=== PATIENT | female | born 1925 | race Caucasian/White ===

== ENCOUNTER 2017-03-29 16:37 | Inpatient (IN) ==
[2017-03-29] MEDS ORDERED: Naloxone 0.4 MG/ML INJ IVP PRN (21:13)
[2017-03-29] MEDS ORDERED: *HR* Dextrose 50 % in Water (Syg) 50 ML SYRINGE IVP PRN (21:16)
[2017-03-29] MEDS ORDERED: D5% in Water 1,000 ML IVC PRN (21:16)
[2017-03-29] MEDS ORDERED: Dextrose Gel 15 GM/37.5 ML TUBE PO PRN ×2 (21:16)
--- NOTE | 2017-03-29 21:20 | Internal Med History&Physical ---
Date of Encounter: 03/29/17 Time of Encounter: 20:45 Assessment and Plan (1) Atypical chest pain Current visit: No Status: Acute No prior history of CAD however given risk factors, will work up to rule out ACS mild TNI elevation can be secondary to demand ischemia given underlying respiratory distress and URI trend serial TNI obtain 2D echo tele monitoring serial EKG consider cardio evaluation if the above tests are abnormal pt currently chest pain free at this time (2) Upper respiratory infection Current visit: No Status: Acute will obtain respiratory viral panel CXR negative for PNA however given acute respiratory distress x 3 days, will treat with empiric abx continue Azithromycin and Ceftriaxone O2 supplementation Bronchodilator support as needed will obtain CTA chest to rule out PE or any acute cardiopulmonary etiology contributing to her symptoms will closely monitor respiratory status Qualifiers: URI type: unspecified URI Qualified Code(s): J06.9 - Acute upper respiratory infection, unspecified (3) Lactic acidosis Current visit: Yes Status: Acute likely secondary to hypoxia will repeat Lactate pt reports of improvement in her symptoms since hospitalization (4) Hypertension Current visit: Yes Status: Chronic BP within acceptable range please restart home medications after verification Qualifiers: Hypertension type: essential hypertension Qualified Code(s): I10 - Essential (primary) hypertension (5) Diabetes mellitus Current visit: Yes Status: Chronic hold oral antihyperglycemic agents sliding scale insulin algorithm monitor FS and BG ADA diet Qualifiers: Diabetes mellitus type: type 2 Diabetes mellitus complication status: with unspecified complications Diabetes mellitus terminal makeup operator insulin use: without terminal makeup operator use Qualified Code(s): E11.8 - Type 2 diabetes mellitus with unspecified complications (6) DVT prophylaxis Current visit: Yes Status: Acute Heparin SQ Internal Medicine - H&P: HPI Chief complaint: transfer from [facility] [place] for chest pain/URI Admitted From: Intrahospital Transfer Plans for Post Hospital Care: Home History of present illness: Ms. Ayala is a 89 year old female with PMH of HTN, DM, breast ca s/p mastectomy in 1982 who was transferred from [facility] for further evaluation of chest pain and URI. Pt reports of having worsening shortness of breath with nausea and vomiting for the last two days. She states she has been feeling weak for the last few days and has had chest pain intermittently for the last two weeks. Describes the chest pain as localized sharp substernal pain with no radiation. Denies any exacerbating or alleviating factors. She states she had a similar episode last summer when she was doing yard work. Reported of severe respiratory distress which is what prompted her visit to the ER. The EKG reported sinus rhythm with some Q waves in anterior leads V2 and V3. Some upsloping ST elevation in leads V2 and V3. ST depression in leads 1 and aVL. This was compared to an EKG from 05/24/2016 the patient has moderate artifact primarily in the inferior leads and only slight ST elevation in V2 and V3. Mild TNI elevation Denies any chest pain at this time. Wishes to be DNR/DNI and reports of having a living will. Past Med Surg Social Fam HX - Past Medical History Medical history: cancer, diabetes Psychiatric history: no psych history - Past Surgical History Surgical History: breast surgery, cancer surgery - Social History Smoking Status: Never smoker Smokeless Tobacco Status: No Alcohol use: none Drug use: none Internal Medicine - H&P: Meds Amlodipine Besylate 10 mg PO DAILY 07/30/16 [History] Ascorbate Calcium [Vitamin C] 500 mg PO DAILY 07/30/16 [History] Aspirin [Ecotrin] 325 mg PO DAILY 07/30/16 [History] Calcium Carbonate [Calcium] 500 mg PO DAILY 07/30/16 [History] Famotidine [Pepcid] 40 mg PO DAILY 07/30/16 [History] Garlic 500 mg PO DAILY 07/30/16 [History] Magnesium Oxide [Magnesium] 250 mg PO DAILY 07/30/16 [History] Metoprolol XL (24 HR) Succ [Toprol XL] 100 mg PO DAILY 07/30/16 [History] Multivits Min/Iron/FA/Herb#186 [Hair, Skin & Nails Caplet] 1 tab PO DAILY [History] [place]-3/Dha/Epa/Fish Oil [Fish Oil 500 mg Softgel] 500 mg PO DAILY 07/30/16 [ History] Triamterene/HCTZ 37.5/25mg [Dyazide] 1 each PO DAILY 07/30/16 [History] Zinc Acetate [Galzin] 50 mg PO DAILY 07/30/16 [History] metFORMIN [Glucophage] 500 mg PO BIDWM 07/30/16 [History] 3 Allergy/AdvReac Type Severity Reaction Status Date / Time doxazosin [From Cardura] Allergy Swelling Verified 07/30/16 09:58 of Lip/Tongue/Throat lisinopril Allergy Swelling Verified 07/30/16 09:58 of Lip/Tongue/Throat simvastatin [From Zocor] Allergy Swelling Verified 07/30/16 09:58 of Lip/Tongue/Throat All Systems PM: A 10-system review of systems was performed and is negative for pertinent findings except as documented above in the HPI. - EENT Eyes: as per HPI - Constitutional Vitals: Temp Pulse Resp BP Pulse Ox 98 F 82 22 150/68 100 03/29/17 19:41 03/29/17 19:41 03/29/17 19:41 03/29/17 19:41 03/29/17 19:41 General appearance: Present: cooperative, A&O X 3 (hard of hearing), pleasant, no acute distress, answers questions appropriately - Head Head exam: Present: atraumatic, normocephalic - Eye Eye exam: Present: conjuntiva pink, sclera anicteric - Respiratory Respiratory exam: Present: decreased breath sounds. Absent: respiratory distress, wheezes - Cardiovascular Cardiovascular exam: Present: RRR, +S1, +S2. Absent: diastolic murmur, gallop, rubs, systolic murmur - GI/Abdominal GI/Abdominal exam: Present: normal bowel sounds, soft, no peritoneal signs. Absent: distended, tenderness - Extremities Exam Extremities exam: Present: warm, radial pulses palpable and symmetrical. Absent : calf tenderness, cyanotic, pedal edema - Neurological Exam Neurological exam: Present: alert, oriented X3
[2017-03-29] MEDS: Ipratropium/Albuterol Neb 3 ML IH SCH (22:20)
[2017-03-29] MEDS ORDERED: *HR* Heparin 5,000 UNIT/ML VIAL IVP PRN ×2 (22:31)
[2017-03-29] MEDS ORDERED: *HR* Heparin 5,000 UNIT/ML VIAL IVP ONE (22:31)
[2017-03-29] MEDS: Insulin LISPRO 300 UNITS/3 ML VIAL SQ SCH (23:03)
[2017-03-29] MEDS: Heparin 25,000 UNIT/500 ML D5W 25,000 UNIT/500 ML BAG IVC SCH (23:12)
[2017-03-30] MEDS ORDERED: *HR* Morphine 2 MG/ML SYRINGE ONE (00:28)
[2017-03-30 00:29] LABS: Adenovirus Not Detected (Not Detect); Bordetella Pertussis Not Detected (Not Detect); Chlamydophila pneumoniae Not Detected (Not Detect); Coronavirus 229E Not Detected (Not Detect); Coronavirus HKU1 Not Detected (Not Detect); Coronavirus NL63 Not Detected (Not Detect); Coronavirus OC43 Not Detected (Not Detect); Human Metapneumovirus Not Detected (Not Detect); Human Rhinovirus/Enterovirus Not Detected (Not Detect); Influenza A Subtype 2009 H1 Not Detected (Not Detect); Influenza A Untypeable Not Detected (Not Detect); Influenza B Not Detected (Not Detect); Mycoplasma pneumoniae Not Detected (Not Detect); Parainfluenza Virus 1 Not Detected (Not Detect); Parainfluenza Virus 2 Not Detected (Not Detect); Parainfluenza Virus 3 Not Detected (Not Detect); Parainfluenza Virus 4 Not Detected (Not Detect); Respiratory Syncytial Virus Not Detected (Not Detect)
[2017-03-30] MEDS ORDERED: Nitroglycerin 0.4 MG TAB.SUBL SL ONE (00:29)
[2017-03-30] MEDS ORDERED: Nitroglycerin 0.4 MG TAB.SUBL SL PRN (00:30)
[2017-03-30] MEDS ORDERED: *HR* Morphine 2 MG/ML SYRINGE IVP ONE (00:31)
[2017-03-30] MEDS: Ipratropium/Albuterol Neb 3 ML IH SCH ×4 (04:35→23:07)
[2017-03-30] MEDS ORDERED: 0.9 % Sodium Chloride 500 ML ONE (05:00)
[2017-03-30] MEDS ORDERED: 0.9 % Sodium Chloride 500 ML IVC ONE (05:02)
[2017-03-30 05:33] LABS: Basophils % 0.2 %; Eosinophils % 0.3 %; Hematocrit 32.9 % (35.3-44.9); Hemoglobin 10.8 g/dL (11.5-15.4); Immature Granulocytes % 0.4 % (0-4); Lymphocytes # 2.5 K/mcL (0.6-4.6); Lymphocytes % 22.9 %; Mean Corpuscular HGB Conc 32.8 g/dL (31.6-35.5); Mean Corpuscular Hemoglobin 31.3 pg (28.0-33.3); Mean Corpuscular Volume 95.4 fL (83.0-100.0); Mean Platelet Volume 12.8 fL (9.4-12.4); Monocytes # 0.9 K/mcL (0.0-1.3); Monocytes % 7.8 %; Neutrophils # 7.6 K/mcL (1.6-8.9); Platelet Count 158 K/mcL (140-400); Red Blood Count 3.45 M/mcL (3.82-4.97); Red Cell Distribution Width 12.5 % (11.5-14.5); Segmented Neutrophils % 68.4 %
[2017-03-30] MEDS ORDERED: *HR* Heparin 5,000 UNIT/ML VIAL SQ SCH (06:00)
[2017-03-30 06:05] LABS: BUN/Creatinine Ratio 25 (6-26); Blood Urea Nitrogen 17 mg/dL (8-23); Calcium 8.7 mg/dL (8.6-10.3); Carbon Dioxide 22 mEq/L (23-29); Chloride 103 mEq/L (98-107); Chol/HDL Ratio 4.3 (0-4.9); Cholesterol 152 mg/dL (< 200); Glucose 204 mg/dL (70-105); HDL Cholesterol 35 mg/dL (40-59); LDL Cholesterol,Calculated 67 mg/dL (0-99); Magnesium 1.9 mg/dL (1.6-2.6); Osmolality,Calculated 289 (280-300); Phosphorous 2.6 mg/dL (2.7-4.5); Potassium 3.1 mEq/L (3.5-5.1); Sodium 136 mEq/L (136-145); Triglycerides 249 mg/dL (< 150); eGFR For African Americans > 60 (> 60); eGFR For Non-African Americans > 60 (> 60)
[2017-03-30] MEDS ORDERED: Ascorbic Acid 500 MG TABLET PO SCH (09:00)
[2017-03-30] MEDS ORDERED: amLODIPine 5 MG TABLET PO SCH (09:00)
[2017-03-30] MEDS ORDERED: Famotidine 20 MG TABLET PO SCH (09:00)
[2017-03-30] MEDS: Insulin LISPRO 300 UNITS/3 ML VIAL SQ SCH ×4 (09:43→22:34)
[2017-03-30] MEDS: Aspirin Enteric Coated 325 MG Tablet PO SCH (09:45)
[2017-03-30] MEDS: Magnesium Oxide 400 MG TABLET PO SCH (09:45)
[2017-03-30] MEDS: Multivit/Ca/Min/Fe/FA 1 TAB TABLET PO SCH (09:46)
[2017-03-30] MEDS: cefTRIAXone 1,000 MG in Water for inj. (sterile) 20 ML 10 ML IVP SCH (09:51)
[2017-03-30] MEDS: Metoprolol XL (24 HR) Succ 50 MG TAB.ER.24H PO SCH ×2 (10:04→12:07)
--- NOTE | 2017-03-30 10:06 | Cardiology Consult Note ---
Date of Encounter: 03/30/17 Time of Encounter: 10:02 Assessment and Plan (1) Elevated troponin Current Visit: Yes Status: Acute Troponin 0.06, 0.11, 0.06, in setting of lactic acidosis, URI, now A-Fib RVR. Suspect demand ischemia, nondiagnostic for ACS. On heparin gtt for A-Fib RVR. Does admit to intermittent chest pain over the past two weeks. No exacerbating factors. Reports "getting air" improves the pain. EKG A-Fib RVR, prior anteroseptal RI. Pt denies prior cardiac hx. Murmur noted on exam 2/6, loudest at RSB. Echo to evaluate structure and function. Further recommendations pending echo results. Pt is DNR-CCA-DNI. If echo is abnormal, will need to discuss goals and how aggressive she wants to be. (2) Atrial fibrillation with RVR Current Visit: Yes Status: Acute New diagnosis, in setting of URI. HR 100s-130s at bedside. On cardizem gtt at 5mg/hr. Uptitrate as BP/HR tolerate. K 3.1--replace, Mag 1.9. Check TSH. On Toprol XL 100mg daily. Will stop Norvasc and Dyazide to allow BP room for AV leesa nataly increase in attempt to achieve HR control. [id number] (Age, HTN, Female, DM). Currently on heparin gtt. Pt denies falls. Given murmur on exam, await echo results to determine if Coumadin or NOAC is the best option. High CVA risk, so will likely recommend [facility]. (3) Cardiac murmur Current Visit: Yes Status: Acute 2/6 ROZINA, loudest at RSB. Echo to further evaluate. Discussion w patient/family: The assessment and plan as outlined above was discussed with the patient and/or family members who expressed understanding and agreement. All questions were answered. Thank you for involving us in the care of your patient. Please call with any questions. I will discuss all the above with Dr. Oliva and make changes as necessary. History of Present Illness Consult date: 03/30/17 Requesting physician: Melanie Lozano Consult reason: Elevated troponin, chest pain, A-Fib RVR Chief complaint: Chest pain, dyspnea History of present illness: Ms. Ayala is a 89 year old female with PMH of HTN, DM, breast ca s/p mastectomy in 1982 who was transferred from [facility] for further evaluation of chest pain and URI. Pt reports of having worsening shortness of breath with nausea and vomiting for the last two days. She states she has been feeling weak for the last few days and has had chest pain intermittently for the last two weeks. Describes the chest pain as localized sharp substernal pain with no radiation. Reports "getting air" improves the pain. Overnight pt went into A-Fib RVR, currently RVR at bedside with HR low 100s-130s on telemetry. Troponin 0.06, 0.11, 0.06. BNP 404. CXR without acute findings. Past Med Surg Social Fam HX - Past Medical History Medical history: cancer, diabetes, GERD, hypertension Psychiatric history: no psych history - Past Surgical History Surgical History: breast surgery, cancer surgery - Social History Smoking Status: Never smoker Smokeless Tobacco Status: No Alcohol use: none Drug use: none Medications and Allergies Amlodipine Besylate 10 mg PO DAILY 07/30/16 [History] Ascorbate Calcium [Vitamin C] 500 mg PO DAILY 07/30/16 [History] Aspirin [Ecotrin] 325 mg PO DAILY 07/30/16 [History] Calcium Carbonate [Calcium] 500 mg PO DAILY 07/30/16 [History] Famotidine [Pepcid] 40 mg PO DAILY 07/30/16 [History] Garlic 500 mg PO DAILY 07/30/16 [History] Magnesium Oxide [Magnesium] 250 mg PO DAILY 07/30/16 [History] Metoprolol XL (24 HR) Succ [Toprol XL] 100 mg PO DAILY 07/30/16 [History] Multivits Min/Iron/FA/Herb#186 [Hair, Skin & Nails Caplet] 1 tab PO DAILY [History] [place]-3/Dha/Epa/Fish Oil [Fish Oil 500 mg Softgel] 500 mg PO DAILY 07/30/16 [ History] Triamterene/HCTZ 37.5/25mg [Dyazide] 1 each PO DAILY 07/30/16 [History] Zinc Acetate [Galzin] 50 mg PO DAILY 07/30/16 [History] metFORMIN [Glucophage] 500 mg PO BIDWM 07/30/16 [History] Potassium Gluconate [Potassium] 500 mg PO HS 03/29/17 [History] 3 Allergy/AdvReac Type Severity Reaction Status Date / Time doxazosin [From Cardura] Allergy Swelling Verified 07/30/16 09:58 of Lip/Tongue/Throat lisinopril Allergy Swelling Verified 07/30/16 09:58 of Lip/Tongue/Throat simvastatin [From Zocor] Allergy Swelling Verified 07/30/16 09:58 of Lip/Tongue/Throat All Systems Review: A 10-system review of systems was performed and is negative for pertinent findings except as documented above in the HPI. - Constitutional Constitutional: weakness - Cardiovascular Cardiovascular: as per HPI, chest pain at rest, chest pain with exertion, dyspnea at rest, dyspnea on exertion - Respiratory Respiratory: cough, dyspnea - Gastrointestinal Gastrointestinal: nausea Physical Examination Vital Signs, Last 4 Hours Temp Pulse Resp BP Pulse Ox 03/30/17 09:00 126 142/92 03/30/17 07:15 122 18 113/55 95 03/30/17 06:57 97.8 F 114 18 120/66 98 03/30/17 06:49 123 18 108/64 96 03/30/17 06:20 118 130/89 95 Vital Signs Temp Pulse Resp BP Pulse Ox 03/30/17 09:00 126 142/92 03/30/17 07:15 122 18 113/55 95 03/30/17 06:57 97.8 F 114 18 120/66 98 03/30/17 06:49 123 18 108/64 96 03/30/17 06:20 118 130/89 95 03/30/17 05:39 120 102/84 96 03/30/17 05:32 123 20 114/89 94 03/30/17 05:05 118 20 96/58 93 03/30/17 04:58 113 96/58 03/30/17 04:56 102 20 89/59 03/30/17 04:55 113 18 70/50 93 03/30/17 04:37 16 96 03/30/17 04:25 98 18 105/69 94 03/30/17 04:00 98 F 123 20 112/84 93 03/30/17 03:35 98 F 123 20 112/84 93 03/30/17 03:00 118 18 112/84 94 03/30/17 02:33 118 117/89 03/30/17 02:06 126 18 126/86 94 03/30/17 00:55 105 18 120/54 94 03/30/17 00:45 110 18 105/60 94 03/30/17 00:38 122 18 105/71 94 03/30/17 00:32 120 20 117/66 94 03/30/17 00:29 22 148/87 92 03/30/17 00:00 97.7 F 83 20 126/83 95 03/29/17 22:24 18 97 03/29/17 20:00 94 03/29/17 19:41 98 F 82 22 150/68 100 Intake and Output 03/29/17 03/30/17 03/30/17 23:59 07:59 15:59 Intake Total 0 / 0 535 / 535 32 / 32 Output Total 500 / 500 Balance 0 / 0 35 / 35 32 / 32 Intake: IV Fluids 535 / 535 32 / 32 0.9 % Sodium Chloride 500 ML @ 500 / 500 1875 mls/hr IVC .Q16M ONE Rx#: [id number] Cardizem 125 MG In 0.9 % Sodium 35 / 35 32 / 32 Chloride 100 ML @ 5 MG/HR 5 mls/hr IVC .Q24H [facility] Rx#: [id number] Heparin 25,000 UNIT/500 ML D5W 0 / 0 25,000 unit In 500 ml @ 12 UNIT /KG/HR 15.888 mls/hr IVC .Q24H [facility] Rx#:[id number] Oral 0 / 0 0 / 0 Output: Urine 500 / 500 Other: # Voids 1 1 Weight 66.2 kg 66.2 kg Blood Glucose* 213 201 Patient Weight 03/30/17 23:59 Weight 66.2 kg General: Conversant, No Apparent Distress HEENT: Atraumatic, Normocephaly, Mucus Membranes Moist Neck: No JVD, Normal carotid pulses Cardiac: Other (irregularly irregular, 2/6 ROZINA) Lungs: Other (diminished) Neuro: Alert and responsive, No focal deficits noted Abdomen: Soft, Non-Tender Skin: No rashes noted on visualized skin Musculoskeletal: No Chest Wall Tenderness Extremities: No Clubbing, No Cyanosis, No Edema, Normal Pulses Results 03/30/17 05:19 03/30/17 05:19 Lab Results 03/29/17 03/30/17 03/30/17 21:54 05:19 05:19 WBC 11.1 Hgb 10.8 L D Hct 32.9 L Plt Count 158 APTT Sodium 136 Potassium 3.1 L Chloride 103 Carbon Dioxide 22 L BUN 17 Creatinine 0.68 Glucose 204 H Calcium 8.7 Magnesium 1.9 Troponin I 0.11 H* 03/30/17 03/30/17 05:19 05:19 WBC Hgb Hct Plt Count APTT 36.9 H Sodium Potassium Chloride Carbon Dioxide BUN Creatinine Glucose Calcium Magnesium Troponin I 0.06 H* Short CBC 03/30/17 Range/Units 05:19 WBC 11.1 (4.3-11.1) K/mcL Hgb 10.8 L D (11.5-15.4) g/dL Hct 32.9 L (35.3-44.9) % Plt Count 158 (140-400) K/mcL Neutrophils # 7.6 (1.6-8.9) K/mcL BMP 03/30/17 Range/Units 05:19 Sodium 136 (136-145) mEq/L Potassium 3.1 L (3.5-5.1) mEq/L Chloride 103 (98-107) mEq/L Carbon Dioxide 22 L (23-29) mEq/L BUN 17 (8-23) mg/dL Creatinine 0.68 (0.60-1.20) mg/dL Glucose 204 H (70-105) mg/dL Calcium 8.7 (8.6-10.3) mg/dL Cardiac Enzymes 03/30/17 03/29/17 Range/Units 05:19 21:54 Troponin I 0.06 H* 0.11 H* (< 0.04) ng/mL Active Medications Hydrocodone Bitart/Acetaminophen ([place] 5-325 Mg) 1 tab PO Q4HR PRN PRN Reason: Moderate Pain (4-6) Stop: 09/28/17 21:14 Albuterol/Ipratropium (Duoneb) 3 ml IH [id number] PRN PRN Reason: Shortness Of Breath/Wheezing Stop: 09/28/17 21:32 Albuterol/Ipratropium (Duoneb) 3 ml IH [id number] [facility] Stop: 09/28/17 22:01 Last Admin: 03/30/17 04:35 Dose: 3 ml Amlodipine Besylate (Norvasc) 10 mg PO DAILY [facility] Stop: 09/29/17 09:01 Last Admin: 03/30/17 08:59 Dose: Not Given Ascorbic Acid (Vitamin C) 1 mg PO DAILY [facility] Stop: 09/29/17 09:01 Aspirin (Aspirin Ec) 325 mg PO DAILY [facility] Stop: 09/29/17 09:01 Last Admin: 03/30/17 09:45 Dose: 325 mg Calcium Carbonate (Tums) 500 mg PO DAILY [facility] Stop: 09/29/17 09:01 Last Admin: 03/30/17 09:48 Dose: 500 mg Dextrose/Water (Dextrose 50% (Syg)) 25 ml IVP AD PRN PRN Reason: Hypoglycemia Stop: 09/28/17 21:17 Famotidine (Pepcid) 40 mg PO DAILY [facility] Stop: 09/29/17 09:01 Last Admin: 03/30/17 09:46 Dose: 40 mg Glucagon (Glucagen) 1 mg IM ONCE PRN PRN Reason: Hypoglycemia Stop: 09/28/17 21:17 Glucose (Gluctose) 15 gm PO ONCE PRN PRN Reason: Hypoglycemia Stop: 09/28/17 21:17 Glucose (Gluctose) 30 gm PO ONCE PRN PRN Reason: Hypoglycemia Stop: 09/28/17 21:17 Heparin Sodium (Porcine) (Heparin) 4,000 unit 60 unit/kg (4000 unit) IVP Q6HR PRN PRN Reason: SEE COMMENTS Stop: 09/28/17 22:32 Last Admin: 03/30/17 06:54 Dose: 4,000 unit Heparin Sodium (Porcine) (Heparin) 2,000 unit 30 unit/kg (2000 unit) IVP Q6H PRN PRN Reason: SEE COMMENTS Stop: 09/28/17 22:32 Dextrose (Dextrose 5%) 1,000 mls @ 100 mls/hr IVC .Q10H PRN PRN Reason: HYPOGLYCEMIA Stop: 09/28/17 21:17 Azithromycin 500 mg/ Dextrose 250 mls @ 252 mls/hr IVPB Q24H [facility] Stop: 09/29/17 17:01 Ceftriaxone Sodium 1,000 mg/ (Sterile Water) 10 mls @ 300 mls/hr IVP DAILY [facility] Stop: 09/29/17 09:01 Last Admin: 03/30/17 09:51 Dose: 300 mls/hr Heparin Sodium/Dextrose (Heparin 25,000 Unit/500 Ml D5w) 25,000 unit in 500 mls @ 15.888 mls/hr IVC .Q24H [facility]; 12 UNIT/KG/HR PRN Reason: Protocol Stop: 09/28/17 22:46 Last Titration: 03/30/17 06:55 Dose: 16 unit/kg/hr, 21.184 mls/hr Diltiazem HCl 125 mg/ Sodium (Chloride) 125 mls @ 5 mls/hr IVC .Q24H [facility]; 5 MG/ HR PRN Reason: Protocol Stop: 09/29/17 01:16 Last Titration: 03/30/17 08:59 Dose: 7.5 mg/hr, 7.5 mls/hr Insulin Human Lispro (Humalog) 0 units SQ TIDAC [facility] PRN Reason: Protocol Stop: 09/29/17 07:31 Last Admin: 03/30/17 09:43 Dose: 6 units Insulin Human Lispro (Humalog) 0 units SQ HS [facility] PRN Reason: Protocol Stop: 09/28/17 21:34 Last Admin: 03/29/17 23:03 Dose: 3 units Magnesium Oxide (Mag-Ox) 200 mg PO DAILY [facility] Stop: 09/29/17 09:01 Last Admin: 03/30/17 09:45 Dose: 200 mg Metoprolol Succinate (Toprol Xl) 100 mg PO DAILY [facility] Stop: 09/29/17 09:01 Last Admin: 03/30/17 10:04 Dose: 50 mg Multivitamins/Calcium (Thera M Plus) 1 tab PO DAILY [facility] Stop: 09/29/17 09:01 Last Admin: 03/30/17 09:46 Dose: 1 tab Naloxone HCl (Narcan) 0.4 mg IVP Q2MIN PRN PRN Reason: Opioid Reversal Stop: 09/28/17 21:14 Nitroglycerin (Nitroglycerin) 0.4 mg SL Q5MIN PRN PRN Reason: Chest Pain Stop: 09/29/17 00:31 Last Admin: 03/30/17 00:29 Dose: 0.4 mg Ondansetron HCl (Zofran) 4 mg IVP Q6HR PRN PRN Reason: Nausea And Vomiting Stop: 09/28/17 21:14 Pharmacy Profile Note (Patient Taking Own Medication) 1 each PO DAILY [facility] Stop: 09/29/17 09:01 Last Admin: 03/30/17 08:59 Dose: Not Given Triamterene/HCTZ (Dyazide) 1 each PO DAILY [facility] Stop: 09/29/17 09:01 Last Admin: 03/30/17 08:58 Dose: Not Given - Imaging and Cardiology Echo: pending - EKG Interpretation EKG results cardiology: personally reviewed (A-Fib RVR, prior anteroseptal RI.) , other (12 hr tele AVG HR 114, A-Fib) Consult Discharge Plan - Plan Referrals: Manjula Yee, ADJUSTER ARBITRATOR [Primary Care Provider] -
--- NOTE | 2017-03-30 12:37 | Internal Med Progress Note ---
Date of Encounter: 03/30/17 Time of Encounter: 12:35 - Assessment and plan (1) Atrial fibrillation with RVR Current Visit: Yes Status: Acute Assessment and plan: No clear trigger Continue Cardizem, metoprolol Heparin drip CT angiography chest ordered, may discontinue Rocephin and azithromycin if no infection is found Cardiology recommendations appreciated Echocardiogram ordered (2) Diabetes mellitus Current Visit: Yes Status: Chronic Assessment and plan: Insulin sliding scale Qualifiers: Diabetes mellitus type: type 2 Diabetes mellitus complication status: with unspecified complications Diabetes mellitus manager terminal insulin use: without manager terminal use Qualified Code(s): E11.8 - Type 2 diabetes mellitus with unspecified complications (3) Elevated troponin Current Visit: Yes Status: Acute Assessment and plan: Likely secondary to demand ischemia (4) Cardiac murmur Current Visit: Yes Status: Acute Assessment and plan: Echocardiogram ordered (5) Hypertension Current Visit: Yes Status: Chronic Assessment and plan: Hold amlodipine, triamterene and hydrochlorothiazide as the patient will be on Cardizem for now, per cardiology recommendations Qualifiers: Hypertension type: essential hypertension Qualified Code(s): I10 - Essential (primary) hypertension - Subjective Interval history: Feeling very short of breath, denies any chest pain, no abdominal pain, no dysuria, no fevers, no weakness - Constitutional Vitals: Temp Pulse Resp BP Pulse Ox 97.8 F 102 16 128/96 94 03/30/17 11:34 03/30/17 11:34 03/30/17 11:34 03/30/17 11:34 03/30/17 11:34 General appearance: Present: cooperative, A&O X 3 (hard of hearing), pleasant, no acute distress, answers questions appropriately - Head Head exam: Present: atraumatic, normocephalic - Eye Eye exam: Present: PERRL, conjuntiva pink, sclera anicteric Pupils: Present: PERRL - Neck Neck exam general surgery: Present: supple, trachea midline. Absent: lymphadenopathy - Respiratory Respiratory exam: Present: decreased breath sounds, CTAB. Absent: accessory muscle use, rales, rhonchi, wheezes - Cardiovascular Cardiovascular exam: Present: RRR, +S1, +S2, systolic murmur (Systolic murmur radiated to the aortic area), tachycardia. Absent: diastolic murmur, gallop, rubs - GI/Abdominal GI/Abdominal exam: Present: normal bowel sounds, soft, no peritoneal signs. Absent: distended, tenderness - Extremities Exam Extremities exam: Present: warm, radial pulses palpable and symmetrical. Absent : calf tenderness, cyanotic, pedal edema - Neurological Exam Neurological exam: Present: CN II-XII intact, oriented X3, no focal deficits. Absent: pronater drift, facial droop, speech deficit - Skin Skin exam: Present: dry, intact Internal Medicine: Result - Labs CBC & Chem 7: 03/30/17 05:19 03/30/17 05:19 Labs: Short CBC 03/30/17 Range/Units 05:19 WBC 11.1 (4.3-11.1) K/mcL Hgb 10.8 L D (11.5-15.4) g/dL Hct 32.9 L (35.3-44.9) % Plt Count 158 (140-400) K/mcL Neutrophils # 7.6 (1.6-8.9) K/mcL BMP 03/30/17 05:19 Sodium 136 Potassium 3.1 L Chloride 103 Carbon Dioxide 22 L BUN 17 Creatinine 0.68 Glucose 204 H Calcium 8.7 Cardiac Enzymes 03/29/17 03/30/17 Range/Units 21:54 05:19 Troponin I 0.11 H* 0.06 H* (< 0.04) ng/mL Consult Discharge Plan - Plan Referrals: Manjula Yee CNP [Primary Care Provider] - 04/06/17 10:00 am
--- NOTE | 2017-03-30 13:42 | Electrocardiograph Report ---
[address] [id number] Test Date: 2017-03-30 Pat Name: Jeannette Ayala Department: 111 Room: 2NE31 Gender: F Concrete Pourer: : 1925 Requested By: Miguel Greenberg Order Number: [id number] Reading MD: Jody Haley Measurements Intervals [place] Rate: 127 P: NV: 0 QRS: -21 QRSD: 125 T: 142 QT: 312 QTc: 387 Interpretive Statements ATRIAL FIBRILLATION WITH RAPID VENTRICULAR RESPONSE IVCD ST ABNORMALITIES IN ANTERIOR LEADS - CONSIDER ISCHEMIA Electronically Signed On 03-30-2017 13:41:06 EST by Jody Haley
--- NOTE | 2017-03-30 13:49 | Electrocardiograph Report ---
[place] [address] Test Date: 2017-03-29 Pat Name: Jeannette Ayala Department: 2000 Room: 2NE31 Gender: F Test Conductor: : 1925 Requested By: Melanie Lozano Order Number: [id number] Reading MD: Jody Haley Measurements Intervals [place] Rate: 97 P: 32 MA: 174 QRS: -42 QRSD: 131 T: 71 QT: 361 QTc: 416 Interpretive Statements SINUS RHYTHM LEFT BUNDLE BRANCH BLOCK Electronically Signed On 03-30-2017 13:48:10 EST by Jody Haley
--- NOTE | 2017-03-30 13:50 | Electrocardiograph Report ---
[place] [id number] Test Date: 2017-03-29 Pat Name: Jeannette Ayala Department: 2000 Room: 2NE31 Gender: F Water Quality Tester: : 1925 Requested By: Miguel Greenberg Order Number: [id number] Reading MD: Jody Haley Measurements Intervals [place] Rate: 82 P: 18 UT: 157 QRS: -41 QRSD: 132 T: 73 QT: 395 QTc: 434 Interpretive Statements SINUS RHYTHM LEFT BUNDLE BRANCH BLOCK Electronically Signed On 03-30-2017 13:49:02 EST by Jody Haley
[2017-03-30] MEDS: Furosemide 20 MG/2 ML VIAL IVP SCH ×2 (14:38→21:00)
[2017-03-30] MEDS: Ipratropium/Albuterol Neb 3 ML IH PRN (16:09)
[2017-03-30] MEDS: Azithromycin 500 MG in D5% in Water 250 ML IVPB SCH (17:59)
[2017-03-30] MEDS ORDERED: Insulin LISPRO 300 UNITS/3 ML VIAL SQ SCH (21:00)
[2017-03-30 21:24] LABS: Activated Partial Thrombo Time 147.7 Seconds (26.0-36.0)
[2017-03-30 22:46] LABS: Heparin anti-factor XA UFH 1.01 IU/mL (0.30-0.70)
[2017-03-31] MEDS: Heparin 25,000 UNIT/500 ML D5W 25,000 UNIT/500 ML BAG IVC SCH (02:49)
[2017-03-31] MEDS: Ipratropium/Albuterol Neb 3 ML IH SCH ×4 (03:54→22:56)
[2017-03-31] MEDS: *HR* HYDROcodone/Acet 5/325 mg TABLET PO PRN ×4 (04:37→15:28)
[2017-03-31] MEDS: Ondansetron 4 MG/2 ML VIAL IVP PRN ×2 (04:50→20:45)
[2017-03-31 05:22] LABS: Hematocrit 32.4 % (35.3-44.9); Hemoglobin 10.6 g/dL (11.5-15.4); Mean Corpuscular HGB Conc 32.7 g/dL (31.6-35.5); Mean Corpuscular Hemoglobin 31.5 pg (28.0-33.3); Mean Corpuscular Volume 96.4 fL (83.0-100.0); Mean Platelet Volume 12.8 fL (9.4-12.4); Platelet Count 161 K/mcL (140-400); Red Blood Count 3.36 M/mcL (3.82-4.97); Red Cell Distribution Width 12.7 % (11.5-14.5)
[2017-03-31 05:29] LABS: BUN/Creatinine Ratio 22 (6-26); Blood Urea Nitrogen 19 mg/dL (8-23); Calcium 8.4 mg/dL (8.6-10.3); Carbon Dioxide 22 mEq/L (23-29); Chloride 99 mEq/L (98-107); Glucose 281 mg/dL (70-105); Osmolality,Calculated 282 (280-300); Potassium 3.6 mEq/L (3.5-5.1); Sodium 130 mEq/L (136-145); eGFR For African Americans > 60 (> 60); eGFR For Non-African Americans > 60 (> 60)
--- NOTE | 2017-03-31 08:00 | Internal Med Progress Note ---
<Chuck Morales - Last Filed: 03/31/17 18:45> Date of Encounter: 03/31/17 Time of Encounter: 08:00 - Assessment and plan (1) Acute respiratory failure Current Visit: Yes Status: Acute Assessment and plan: Patient currently requires 6 L nasal cannula to maintain oxygen saturation 91% the setting of acute respiratory failure secondary to pulmonary edema in the setting of atrial fibrillation with rapid ventricular rate. - Continue IV diuresis with Lasix - Continue rate control - Monitor volume status closely - Wean oxygen as tolerated Qualifiers: Qualified Code(s): J96.00 - Acute respiratory failure, unspecified whether with hypoxia or hypercapnia (2) Hypertension Current Visit: Yes Status: Chronic Assessment and plan: Hold amlodipine, blood pressure currently appropriate - Continue rate control medications Cardizem and Toprol. - Adjust blood pressure medications as blood pressure stabilizes. Qualifiers: Hypertension type: essential hypertension Qualified Code(s): I10 - Essential (primary) hypertension (3) Diabetes mellitus Current Visit: Yes Status: Chronic Assessment and plan: Patient is a known type II diabetic currently hyperglycemic. Last A1c was 6.5 in April, continue to require increase insulin during inpatient stay. Plan: - Increased yo high-dose sliding scale insulin - Before meals and at bedtime glucose checks Qualifiers: Diabetes mellitus type: type 2 Diabetes mellitus complication status: with unspecified complications Diabetes mellitus long term care phlebotomist insulin use: without halfway use Qualified Code(s): E11.8 - Type 2 diabetes mellitus with unspecified complications (4) Atrial fibrillation with RVR Current Visit: Yes Status: Acute Assessment and plan: Likely secondary to increased systemic volume. -Switched to by mouth Cardizem 120 mg daily - Rate controlled - On heparin drip switching to Eliquis (5) Cardiac murmur Current Visit: Yes Status: Acute Assessment and plan: Patient has finding of grade 2/6 systolic ejection murmur. Echocardiogram: Impressions: LVEF 65%. Indeterminate diastolic function. Normal right ventricular structure and function. Probably moderate, eccentric mitral regurgitation that is not well visualized by color-flow imaging. Mild-moderate tricuspid regurgitation. Mild pulmonic regurgitation. Mild pulmonary hypertension. - Cardiology following appreciate recommendations (6) Diastolic CHF Current Visit: Yes Status: Acute Assessment and plan: Patient demonstrates pulmonary edema in setting of volume overload. Echocardiogram Impressions: LVEF 65%. Indeterminate diastolic function. Normal right ventricular structure and function. Probably moderate, eccentric mitral regurgitation that is not well visualized by color-flow imaging. Mild-moderate tricuspid regurgitation. Mild pulmonic regurgitation. Mild pulmonary hypertension. - Plan as discussed above Qualifiers: Congestive heart failure chronicity: acute Qualified Code(s): I50.31 - Acute diastolic (congestive) heart failure (7) DVT prophylaxis Current Visit: Yes Status: Acute Assessment and plan: patient on heparin drip transition to Eliquis - Subjective Interval history: Patient seen and evaluated patient bedside this morning. She is alert awake interactive in no acute distress. She feels that her breathing is much improved and her heart rate is under control. She has no complaints or concerns at this time - Constitutional Vitals: Temp Pulse Resp BP Pulse Ox 98.2 F 75 14 170/85 94 03/31/17 06:57 03/31/17 06:57 03/31/17 06:57 03/31/17 06:57 03/31/17 06:57 General appearance: Present: cooperative, A&O X 3 (hard of hearing), pleasant, no acute distress, answers questions appropriately - Head Head exam: Present: atraumatic, normocephalic - Eye Eye exam: Present: PERRL, conjuntiva pink, sclera anicteric Pupils: Present: PERRL - Neck Neck exam general surgery: Present: supple, trachea midline. Absent: lymphadenopathy - Respiratory Respiratory exam: Present: rhonchi (Diffuse). Absent: accessory muscle use, rales, wheezes - Cardiovascular Cardiovascular exam: Present: irregular rhythm, systolic murmur (2/6 systolic ejection murmur). Absent: diastolic murmur, gallop, rubs - GI/Abdominal GI/Abdominal exam: Present: normal bowel sounds, soft, no peritoneal signs. Absent: distended, tenderness - Extremities Exam Extremities exam: Present: warm, radial pulses palpable and symmetrical. Absent : calf tenderness, cyanotic, pedal edema - Neurological Exam Neurological exam: Present: alert, oriented X3, no focal deficits. Absent: pronater drift, facial droop, speech deficit - Skin Skin exam: Present: dry, intact Internal Medicine: Result - Labs CBC & Chem 7: 03/31/17 04:55 03/31/17 04:55 Labs: Short CBC 03/31/17 Range/Units 04:55 WBC 15.5 H (4.3-11.1) K/mcL Hgb 10.6 L (11.5-15.4) g/dL Hct 32.4 L (35.3-44.9) % Plt Count 161 (140-400) K/mcL [facility] 03/31/17 04:55 Sodium 130 L Potassium 3.6 Chloride 99 Carbon Dioxide 22 L BUN 19 Creatinine 0.86 Glucose 281 H Calcium 8.4 L - Impressions Impressions Chest CTA 03/29/17 22:06 IMPRESSION: 1. No evidence of pulmonary embolism. 2. Findings in the lungs suggestive of pulmonary edema, including interlobular septal thickening at the lung apices, mild parahilar airspace opacities, and small bilateral effusions. Diffuse infection would be a less likely possibility. 3. Coronary atherosclerosis. 4. Extensive mitral annular calcifications. 5. Partially visualized densities in the renal collecting system bilaterally, which could represent small staghorn calculi. D/ /30/2017 13:07:05 Herberth Mina MD / francois Interpreting Provider: Herberth Mina MD Consult Discharge Plan - Plan Referrals: Manjula Yee CNP [Primary Care Provider] - 04/06/17 10:00 am <José Viera - Last Filed: 03/31/17 18:59> Date of Encounter: 03/31/17 - Assessment and plan (1) Acute respiratory failure Current Visit: Yes Status: Acute Qualifiers: Respiratory failure complication: hypoxia Qualified Code(s): J96.01 - Acute respiratory failure with hypoxia (2) Diastolic CHF Current Visit: Yes Status: Acute Qualifiers: Congestive heart failure chronicity: acute Qualified Code(s): I50.31 - Acute diastolic (congestive) heart failure (3) Diabetes mellitus Current Visit: Yes Status: Chronic Qualifiers: Diabetes mellitus type: type 2 Diabetes mellitus complication status: with unspecified complications Diabetes mellitus long term care phlebotomist insulin use: without long term care phlebotomist use Qualified Code(s): E11.8 - Type 2 diabetes mellitus with unspecified complications (4) Atrial fibrillation Current Visit: Yes Status: Chronic Qualifiers: Atrial fibrillation type: chronic Qualified Code(s): I48.2 - Chronic atrial fibrillation (5) Hypertension Current Visit: Yes Status: Chronic Qualifiers: Hypertension type: essential hypertension Qualified Code(s): I10 - Essential (primary) hypertension - Constitutional Vitals: Temp Pulse Resp BP Pulse Ox 97.1 F L 74 16 120/77 91 03/31/17 15:14 03/31/17 15:14 03/31/17 16:35 03/31/17 15:14 03/31/17 16:35 Internal Medicine: Result - Labs CBC & Chem 7: 03/31/17 04:55 03/31/17 04:55 Labs: Short CBC 03/31/17 Range/Units 04:55 WBC 15.5 H (4.3-11.1) K/mcL Hgb 10.6 L (11.5-15.4) g/dL Hct 32.4 L (35.3-44.9) % Plt Count 161 (140-400) K/mcL BMP 03/31/17 04:55 Sodium 130 L Potassium 3.6 Chloride 99 Carbon Dioxide 22 L BUN 19 Creatinine 0.86 Glucose 281 H Calcium 8.4 L - Impressions Impressions Chest CTA 03/29/17 22:06 IMPRESSION: 1. No evidence of pulmonary embolism. 2. Findings in the lungs suggestive of pulmonary edema, including interlobular septal thickening at the lung apices, mild parahilar airspace opacities, and small bilateral effusions. Diffuse infection would be a less likely possibility. 3. Coronary atherosclerosis. 4. Extensive mitral annular calcifications. 5. Partially visualized densities in the renal collecting system bilaterally, which could represent small staghorn calculi. D/ /30/2017 13:07:05 Herberth iMna MD / francois Interpreting Provider: Herberth Mina MD Echocardiogram 03/30/17 17:41 Impressions: LVEF 65%. Indeterminate diastolic function. Normal right ventricular structure and function. Probably moderate, eccentric mitral regurgitation that is not well visualized by color-flow imaging. Mild-moderate tricuspid regurgitation. Mild pulmonic regurgitation. Mild pulmonary hypertension. Left Ventricular Wall Motion: Rest Echo Findings All wall segments showed normal motion. Findings: Study Quality * Technically sub-optimal due to clinical status - patient very SOB. ECG Findings * Atrial fibrillation. Left Ventricle * LVEF 65%. * Normal LV chamber size, wall thickness and function. * Indeterminate diastolic function. Right Ventricle * Normal right ventricular structure and function. Left Atrium * Moderately dilated left atrium. Right Atrium * Normal right atrial size. Aortic Valve * No aortic regurgitation. * Aortic valve not well visualized. * No aortic stenosis. Mitral Valve * Moderate mitral annular calcification * Mild thickening and calcification - leaflet excursion suboptimally visualized. * No stenosis. * Probably moderate, eccentric mitral regurgitation. Tricuspid Valve * Tricuspid valve not well visualized. * Mild-moderate tricuspid regurgitation. * Estimated RA pressure is 8 mmHg. * Estimated RVSP is 45 mmHg. * Mild pulmonary hypertension. Pulmonic Valve * Pulmonic valve is not well visualized. * No pulmonic stenosis. * Mild pulmonic regurgitation. Pulmonary Artery * Pulmonary artery not well visualized. Aorta * Normally sized aortic root. Interatrial Septum * No evidence of PFO by color Doppler. Pericardium * There is no pericardial effusion present. IVC * The IVC is not dilated. * < 50% respiratory change. - Attending Attestation I examined this patient and my medical decision-making was reviewed with the Resident Physician on 03/31/17. I agree with the documented findings, disposition and treatment plan as described except to the extent set forth below. Ms Ayala is currently admitted for acute exac CHF. She remains moderate to high risk due to potential for worsening clinical and respiratory status. Ms Ayala is having conversational dypsnea. She is having a lot of arthritis pain which makes her more restless. No fever or chills. No GI issues. Exam Alert. Moderate respiratory distress Mucus membranes dry Heart irreg Lungs with rales bilaterally. Abd soft I/P 1. Hypoxia 2. CHF Further diagnoses and plan as above.
[2017-03-31] MEDS: Magnesium Oxide 400 MG TABLET PO SCH (08:31)
[2017-03-31] MEDS: Famotidine 20 MG TABLET PO SCH (08:32)
[2017-03-31] MEDS: cefTRIAXone 1,000 MG in Water for inj. (sterile) 20 ML 10 ML IVP SCH (08:32)
[2017-03-31] MEDS: Ascorbic Acid 500 MG TABLET PO SCH (08:32)
[2017-03-31] MEDS: Metoprolol XL (24 HR) Succ 50 MG TAB.ER.24H PO SCH (08:32)
[2017-03-31] MEDS: Multivit/Ca/Min/Fe/FA 1 TAB TABLET PO SCH (08:32)
[2017-03-31] MEDS: Aspirin Enteric Coated 325 MG Tablet PO SCH (08:32)
[2017-03-31] MEDS: Furosemide 20 MG/2 ML VIAL IVP SCH ×2 (08:32→17:20)
[2017-03-31] MEDS: Insulin LISPRO 300 UNITS/3 ML VIAL SQ SCH ×3 (08:33→17:24)
[2017-03-31] MEDS ORDERED: Furosemide 40 MG/4 ML VIAL IVP ONE (10:11)
--- NOTE | 2017-03-31 10:35 | Cardiology Progress Note ---
Date of Encounter: 03/31/17 Time of Encounter: 10:32 Assessment and Plan (1) Elevated troponin Current Visit: Yes Status: Acute Troponin 0.06, 0.11, 0.06, in setting of lactic acidosis, URI, now A-Fib RVR. Suspect demand ischemia, nondiagnostic for ACS. On heparin gtt for A-Fib RVR. Does admit to intermittent chest pain over the past two weeks. No exacerbating factors. Reports "getting air" improves the pain. EKG A-Fib RVR, prior anteroseptal AR. Pt denies prior cardiac hx. Echo reveals preserved EF, 65%, mild-moderate valvular dysfunction. Chest pain has now resolved and pt has converted back to SR. No further cardiac testing warranted as inpt. Cardiology signing off. Reconsult PRN. (2) Atrial fibrillation with RVR Current Visit: Yes Status: Acute New diagnosis, in setting of suspected diastolic CHF. Pt has converted back to SR. Cardizem gtt has been turned off. Hypertensive. Will start PO Cardizem CD 120mg daily. K 3.6 today. On Toprol XL 100mg daily. Echo EF 65%, moderate MR, mild-moderate TR, mild TX, mild htn. [id number] 5 (Age, HTN, Female, DM). Currently on heparin gtt. Pt denies falls. No severe valvular dysfunction on echo. High CVA risk, recommend senior living anticoagulation. Kelly checked Eliquis and Xarelto, $47/month. Checked with pt, she is unsure if this is going to be affordable salvage determiner, but does not want to be on Coumadin. Willing to start Eliquis, will give a free 30 day rx coupon card. Re-evaluate as outpt. Cardiology signing off. Reconsult PRN. (3) Diastolic CHF Current Visit: Yes Status: Acute Small bilateral pleural effusions on chest CTA, pulmonary edema. Mildly elevated BNP. On IV lasix 20mg BID. Dyspnea has improved. Recommend one more day of IV diuresis, transition to PO maintenance dose at discharge. Qualifiers: Congestive heart failure chronicity: acute Qualified Code(s): I50.31 - Acute diastolic (congestive) heart failure Discussion w patient/family: The assessment and plan as outlined above was discussed with the patient and/or family members who expressed understanding and agreement. All questions were answered. Thank you for involving us in the care of your patient. Please call with any questions. I will discuss all the above with Dr. Oliva and make changes as necessary. Subjective Principal diagnosis: A-Fib RVR Interval history: Pt has converted to SR, HR 70s at bedside. Reports dyspnea is improved today. Chest CTA negative for PE, but did show small bilateral pleural effusions, pulmonary edema. Reports chest pain has resolved. Echo resulted--EF preserved 65 %. Moderate MR, mild-moderate TR, mild TX, mild phtn. Objective Vital Signs, Last 4 Hours Temp Pulse Resp BP Pulse Ox 03/31/17 06:57 98.2 F 75 14 170/85 94 Vital Signs Temp Pulse Resp BP Pulse Ox 03/31/17 06:57 98.2 F 75 14 170/85 94 03/31/17 03:55 18 93 03/31/17 03:32 97.9 F 72 20 169/94 93 03/30/17 23:45 76 20 176/75 93 03/30/17 23:10 65 19 117/54 94 03/30/17 21:00 98.2 F 74 22 135/86 96 03/30/17 16:11 99 F 91 16 138/98 100 03/30/17 15:49 16 96 03/30/17 11:34 97.8 F 102 16 128/96 94 03/30/17 11:30 93 128/96 Intake and Output 03/30/17 03/31/17 03/31/17 23:59 07:59 15:59 Intake Total 207 / 207 357.5 / 357.5 330 / 330 Output Total 0 / 0 0 / 0 Balance 207 / 207 357.5 / 357.5 330 / 330 Intake: IV Fluids / 207 117.5 / 117.5 90 / 90 Cardizem 125 MG In 0.9 % Sodium 58 / 58 67.5 / 67.5 Chloride 100 ML @ 5 MG/HR 5 mls/hr IVC .Q24H [facility] Rx#: [id number] Heparin 25,000 UNIT/500 ML D5W 149 / 149 50 / 50 90 / 90 25,000 unit In 500 ml @ 12 UNIT /KG/HR 15.888 mls/hr IVC .Q24H [facility] Rx#:[id number] Oral 0 / 0 240 / 240 240 / 240 Output: Urine 0 / 0 0 / 0 Other: Meal Breakfast Percent of Meal Consumed 100% Stool Size Moderate Stool Consistency soft # Voids 2 Blood Glucose* 246 218 General: Conversant, No Apparent Distress HEENT: Atraumatic, Normocephaly, Mucus Membranes Moist Neck: Normal carotid pulses Cardiac: Reg Rate and Rhythm, Other (2/6 ROZINA) Lungs: Other (diminished) Neuro: Alert and responsive, No focal deficits noted Abdomen: Soft, Non-Tender Skin: No rashes noted on visualized skin Musculoskeletal: No Chest Wall Tenderness Extremities: No Clubbing, No Cyanosis, No Edema Results 03/31/17 04:55 03/31/17 04:55 Lab Results 03/30/17 03/30/17 03/31/17 13:02 20:30 04:55 WBC 15.5 H Hgb 10.6 L Hct 32.4 L Plt Count 161 APTT 90.4 H D 147.7 H* D Sodium Potassium Chloride Carbon Dioxide BUN Creatinine Glucose Calcium 03/31/17 03/31/17 04:55 04:55 WBC Hgb Hct Plt Count APTT 35.8 D Sodium 130 L Potassium 3.6 Chloride 99 Carbon Dioxide 22 L BUN 19 Creatinine 0.86 Glucose 281 H Calcium 8.4 L Short CBC 03/31/17 Range/Units 04:55 WBC 15.5 H (4.3-11.1) K/mcL Hgb 10.6 L (11.5-15.4) g/dL Hct 32.4 L (35.3-44.9) % Plt Count 161 (140-400) K/mcL BMP 03/31/17 Range/Units 04:55 Sodium 130 L (136-145) mEq/L Potassium 3.6 (3.5-5.1) mEq/L Chloride 99 (98-107) mEq/L Carbon Dioxide 22 L (23-29) mEq/L BUN 19 (8-23) mg/dL Creatinine 0.86 (0.60-1.20) mg/dL Glucose 281 H (70-105) mg/dL Calcium 8.4 L (8.6-10.3) mg/dL Impressions Chest CTA 03/29/17 22:06 IMPRESSION: 1. No evidence of pulmonary embolism. 2. Findings in the lungs suggestive of pulmonary edema, including interlobular septal thickening at the lung apices, mild parahilar airspace opacities, and small bilateral effusions. Diffuse infection would be a less likely possibility. 3. Coronary atherosclerosis. 4. Extensive mitral annular calcifications. 5. Partially visualized densities in the renal collecting system bilaterally, which could represent small staghorn calculi. D/ : / 03/30/2017 13:07:05 Herberth Mina MD / francois Interpreting Provider: Herberth Mina MD Echocardiogram 03/30/17 17:41 Impressions: LVEF 65%. Indeterminate diastolic function. Normal right ventricular structure and function. Probably moderate, eccentric mitral regurgitation that is not well visualized by color-flow imaging. Mild-moderate tricuspid regurgitation. Mild pulmonic regurgitation. Mild pulmonary hypertension. Left Ventricular Wall Motion: Rest Echo Findings All wall segments showed normal motion. Findings: Study Quality * Technically sub-optimal due to clinical status - patient very SOB. ECG Findings * Atrial fibrillation. Left Ventricle * LVEF 65%. * Normal LV chamber size, wall thickness and function. * Indeterminate diastolic function. Right Ventricle * Normal right ventricular structure and function. Left Atrium * Moderately dilated left atrium. Right Atrium * Normal right atrial size. Aortic Valve * No aortic regurgitation. * Aortic valve not well visualized. * No aortic stenosis. Mitral Valve * Moderate mitral annular calcification * Mild thickening and calcification - leaflet excursion suboptimally visualized. * No stenosis. * Probably moderate, eccentric mitral regurgitation. Tricuspid Valve * Tricuspid valve not well visualized. * Mild-moderate tricuspid regurgitation. * Estimated RA pressure is 8 mmHg. * Estimated RVSP is 45 mmHg. * Mild pulmonary hypertension. Pulmonic Valve * Pulmonic valve is not well visualized. * No pulmonic stenosis. * Mild pulmonic regurgitation. Pulmonary Artery * Pulmonary artery not well visualized. Aorta * Normally sized aortic root. Interatrial Septum * No evidence of PFO by color Doppler. Pericardium * There is no pericardial effusion present. IVC * The IVC is not dilated. * < 50% respiratory change. Active Medications Hydrocodone Bitart/Acetaminophen ([place] 5-325 Mg) 1 tab PO Q4HR PRN PRN Reason: Moderate Pain (4-6) Stop: 09/28/17 21:14 Last Admin: 03/31/17 10:07 Dose: 1 tab Albuterol/Ipratropium (Duoneb) 3 ml IH [id number] PRN PRN Reason: Shortness Of Breath/Wheezing Stop: 09/28/17 21:32 Last Admin: 03/30/17 16:09 Dose: 3 ml Albuterol/Ipratropium (Duoneb) 3 ml IH [id number] NELSON Stop: 09/28/17 22:01 Last Admin: 03/31/17 03:54 Dose: 3 ml Ascorbic Acid (Vitamin C) 500 mg PO DAILY [facility]ELSON Stop: 09/29/17 09:01 Last Admin: 03/31/17 08:32 Dose: 500 mg Aspirin (Aspirin Ec) 325 mg PO DAILY [facility] Stop: 09/29/17 09:01 Last Admin: 03/31/17 08:32 Dose: 325 mg Calcium Carbonate (Tums) 500 mg PO DAILY [facility] Stop: 09/29/17 09:01 Last Admin: 03/31/17 08:32 Dose: 500 mg Dextrose/Water (Dextrose 50% (Syg)) 25 ml IVP AD PRN PRN Reason: Hypoglycemia Stop: 09/28/17 21:17 Famotidine (Pepcid) 20 mg PO DAILY [facility] Stop: 09/29/17 09:01 Last Admin: 03/31/17 08:32 Dose: 20 mg Furosemide (Lasix) 20 mg IVP BID [facility] Stop: 09/29/17 13:46 Last Admin: 03/31/17 08:32 Dose: 20 mg Glucagon (Glucagen) 1 mg IM ONCE PRN PRN Reason: Hypoglycemia Stop: 09/28/17 21:17 Glucose (Gluctose) 15 gm PO ONCE PRN PRN Reason: Hypoglycemia Stop: 09/28/17 21:17 Glucose (Gluctose) 30 gm PO ONCE PRN PRN Reason: Hypoglycemia Stop: 09/28/17 21:17 Heparin Sodium (Porcine) (Heparin) 4,000 unit 60 unit/kg (4000 unit) IVP Q6HR PRN PRN Reason: SEE COMMENTS Stop: 09/28/17 22:32 Last Admin: 03/30/17 06:54 Dose: 4,000 unit Heparin Sodium (Porcine) (Heparin) 2,000 unit 30 unit/kg (2000 unit) IVP Q6H PRN PRN Reason: SEE COMMENTS Stop: 09/28/17 22:32 Dextrose (Dextrose 5%) 1,000 mls @ 100 mls/hr IVC .Q10H PRN PRN Reason: HYPOGLYCEMIA Stop: 09/28/17 21:17 Azithromycin 500 mg/ Dextrose 250 mls @ 252 mls/hr IVPB Q24H [facility] Stop: 09/29/17 17:01 Last Admin: 03/30/17 17:59 Dose: 252 mls/hr Ceftriaxone Sodium 1,000 mg/ (Sterile Water) 10 mls @ 300 mls/hr IVP DAILY [facility] Stop: 09/29/17 09:01 Last Admin: 03/31/17 08:32 Dose: 300 mls/hr Heparin Sodium/Dextrose (Heparin 25,000 Unit/500 Ml D5w) 25,000 unit in 500 mls @ 15.888 mls/hr IVC .Q24H NELSON; 12 UNIT/KG/HR PRN Reason: Protocol Stop: 09/28/17 22:46 Last Titration: 03/31/17 08:39 Dose: 16.76 unit/kg/hr, 22.2 mls/hr Diltiazem HCl 125 mg/ Sodium (Chloride) 125 mls @ 5 mls/hr IVC .Q24H NELSON; 5 MG/ HR PRN Reason: Protocol Stop: 09/29/17 01:16 Last Titration: 03/31/17 06:30 Dose: 0 mg/hr, 0 mls/hr Insulin Human Lispro (Humalog) 0 units SQ TIDAC NELSON PRN Reason: Protocol Stop: 09/29/17 07:31 Last Admin: 03/31/17 08:44 Dose: 6 units Insulin Human Lispro (Humalog) 0 units SQ HS [facility]ELSON PRN Reason: Protocol Stop: 09/28/17 21:34 Last Admin: 03/30/17 22:34 Dose: 4 units Magnesium Oxide (Mag-Ox) 200 mg PO DAILY [facility] Stop: 09/29/17 09:01 Last Admin: 03/31/17 08:31 Dose: 200 mg Metoprolol Succinate (Toprol Xl) 100 mg PO DAILY [facility] Stop: 09/29/17 09:01 Last Admin: 03/31/17 08:32 Dose: 100 mg Multivitamins/Calcium (Thera M Plus) 1 tab PO DAILY [facility] Stop: 09/29/17 09:01 Last Admin: 03/31/17 08:32 Dose: 1 tab Naloxone HCl (Narcan) 0.4 mg IVP Q2MIN PRN PRN Reason: Opioid Reversal Stop: 09/28/17 21:14 Nitroglycerin (Nitroglycerin) 0.4 mg SL Q5MIN PRN PRN Reason: Chest Pain Stop: 09/29/17 00:31 Last Admin: 03/30/17 00:29 Dose: 0.4 mg Ondansetron HCl (Zofran) 4 mg IVP Q6HR PRN PRN Reason: Nausea And Vomiting Stop: 09/28/17 21:14 Last Admin: 03/31/17 04:50 Dose: 4 mg Throat Lozenges (Cepacol Sore Throat Lozenge) 1 each MM Q2H PRN PRN Reason: Sore Throat Stop: 09/29/17 20:32 Last Admin: 03/30/17 22:34 Dose: 1 each - Imaging and Cardiology Echo: report reviewed - EKG Interpretation EKG results cardiology: other (12 hr tele AVG HR 70, PAF, now SR.) Consult Discharge Plan - Plan Referrals: Manjula Yee CONTROL TECHNICIAN [Primary Care Provider] - 04/06/17 10:00 am
[2017-03-31] MEDS ORDERED: Insulin LISPRO 300 UNITS/3 ML VIAL SQ SCH (11:48)
[2017-03-31] MEDS: Diltiazem CD (24hr) 120 MG CAPSULE PO SCH (13:25)
[2017-03-31] MEDS: Azithromycin 500 MG in D5% in Water 250 ML IVPB SCH (17:20)
[2017-03-31] MEDS: traZODone 50 MG TABLET PO SCH (23:35)
[2017-03-31] MEDS: Apixaban 5 MG TABLET PO SCH (23:36)
[2017-04-01 04:13] LABS: ABG Base Excess -2 mEq/L (-2 to 3); ABG HCO3 23 mEq/L (21-27); ABG Oxygen Saturation 96 % (95-98); ABG PCO2 40 mmHg (35-45); ABG PH 7.37 pH Units (7.32-7.45); ABG PO2 85 mmHg (85-104); ABG TCO2 24 mEq/L (20-26)
[2017-04-01] MEDS: Ipratropium/Albuterol Neb 3 ML IH SCH ×6 (04:24→23:42)
[2017-04-01] MEDS: *HR* Morphine 2 MG/ML SYRINGE IVP PRN ×4 (04:45→17:25)
[2017-04-01 05:06] LABS: Calcium 8.7 mg/dL (8.6-10.3); Magnesium 2.1 mg/dL (1.6-2.6)
--- NOTE | 2017-04-01 06:08 | Event Note ---
Date of Encounter: 04/01/17 Time of Encounter: 04:00 Called by RN around 4 am to see patient for acute SOB and hypoxemia. Upon my arrival, patient was placed on Bipap per my request. On exam, she appears to be in acute CHF. I ordered CXR which confirmed my suspicion. ABG was stable other than her PO2. Patient denied any chest pain. She feels better with BiPap in place. I discussed with patient and family present her CODE STATUS. Patient reiterated her DNR A/DNI status. However, I suspect she'll change her mind if her respiratory status declines further. I asked RN to place Mai for accurate I/O measurement, to continue IV Lasix, and I also ordered some low dose Morphine to aid in her treatment for CHF.
[2017-04-01] MEDS: Ascorbic Acid 500 MG TABLET PO SCH (08:52)
[2017-04-01] MEDS: Famotidine 20 MG TABLET PO SCH (08:52)
[2017-04-01] MEDS: Aspirin Enteric Coated 81 MG Tablet PO SCH (08:52)
[2017-04-01] MEDS: Magnesium Oxide 400 MG TABLET PO SCH (08:52)
[2017-04-01] MEDS: Multivit/Ca/Min/Fe/FA 1 TAB TABLET PO SCH (08:52)
[2017-04-01] MEDS: Apixaban 5 MG TABLET PO SCH ×2 (08:53→20:28)
[2017-04-01] MEDS: Furosemide 20 MG/2 ML VIAL IVP SCH ×2 (08:53→17:32)
[2017-04-01] MEDS: Diltiazem CD (24hr) 120 MG CAPSULE PO SCH (08:53)
[2017-04-01] MEDS: Metoprolol XL (24 HR) Succ 50 MG TAB.ER.24H PO SCH (08:53)
[2017-04-01] MEDS: cefTRIAXone 1,000 MG in Water for inj. (sterile) 20 ML 10 ML IVP SCH (08:53)
[2017-04-01] MEDS: Insulin LISPRO 300 UNITS/3 ML VIAL SQ SCH ×4 (08:54→20:28)
[2017-04-01] MEDS ORDERED: Furosemide 40 MG/4 ML VIAL IVP ONE (09:18)
[2017-04-01] MEDS ORDERED: Insulin DETEMIR 100 UNIT/ML X5UNITS SQ ONE (09:22)
--- NOTE | 2017-04-01 09:34 | Internal Med Progress Note ---
Addendum entered and electronically signed by Chuck Morales DO 04/01 10:44: Acute kidney injury: Secondary to diminished output secondary to age or fibrillation with rapid ventricular rates, also protruding as IV diuresis necessary due to worsening respiratory status and pulmonary edema. - We will continue to monitor while diuresing, improving rate control - Avoid nephrotoxic medications and renally dose antibiotics as necessary Original Note: <Chuck Morales - Last Filed: 04/01/17 10:36> Date of Encounter: 04/01/17 Time of Encounter: 09:26 - Assessment and plan (1) Acute respiratory failure Current Visit: Yes Status: Acute Assessment and plan: Acute respiratory failure worsened over night. Mrs. Ayala demonstrated decompensation and respiratory status last evening. She was back into atrial fibrillation with rapid ventricular rate oxygen demand requiring BiPAP to maintain oxygen saturations greater than 88%. Repeat chest x-ray demonstrates progression of pulmonary edema with blunting of costophrenic angles bilaterally and increased pulmonary vascularization. ABG performed demonstrating a pH of 7.37, PCO2 40, PO2 85 and a bicarbonate 23 with oxygen saturations at 96% on BiPAP. 04/01: Evaluation this morning demonstrates this Lucy alert awake oriented interactive on BiPAP answering questions appropriately. She continues to have crackles in bilateral lung bases and was placed on nasal Oxygen demonstrates desaturation into the mid 80s. Clinically she appears labored respiratory effort. Decompensation of respiratory status secondary to rapid ventricular rate and worsening pulmonary edema - Continue IV diuresis with Lasix 40mg BID IV - adjust rate control. - Monitor volume status closely - Wean oxygen as tolerated Qualifiers: Respiratory failure complication: hypoxia Qualified Code(s): J96.01 - Acute respiratory failure with hypoxia (2) Hypertension Current Visit: Yes Status: Chronic Assessment and plan: Hold amlodipine, blood pressure currently appropriate - Continue rate control medications Cardizem and Toprol. - Adjust blood pressure medications as blood pressure stabilizes. Qualifiers: Hypertension type: essential hypertension Qualified Code(s): I10 - Essential (primary) hypertension (3) Diabetes mellitus Current Visit: Yes Status: Chronic Assessment and plan: Patient is a known type II diabetic currently hyperglycemic. Last A1c was 6.5 in April, continue to require increase insulin during inpatient stay. Plan: - Low-dose inpatient sliding scale - Levemir 8 units at bedtime initial dose now - Before meals at bedtime glucose checks Qualifiers: Diabetes mellitus type: type 2 Diabetes mellitus complication status: with unspecified complications Diabetes mellitus jail insulin use: without intermodal dispatcher use Qualified Code(s): E11.8 - Type 2 diabetes mellitus with unspecified complications (4) Atrial fibrillation with RVR Current Visit: Yes Status: Acute Assessment and plan: Likely secondary to increased systemic volume. -Continue Cardizem 120 mg daily and beta nataly - Rate uncontrolled at this time - Day 1 of Eliquis - Discussed patient with cardiology regarding uncontrolled rate with current medications, they will follow today (5) Cardiac murmur Current Visit: Yes Status: Acute Assessment and plan: Patient has finding of grade 2/6 systolic ejection murmur. Echocardiogram: Impressions: LVEF 65%. Indeterminate diastolic function. Normal right ventricular structure and function. Probably moderate, eccentric mitral regurgitation that is not well visualized by color-flow imaging. Mild-moderate tricuspid regurgitation. Mild pulmonic regurgitation. Mild pulmonary hypertension. - Cardiology following appreciate recommendations (6) Diastolic CHF Current Visit: Yes Status: Acute Assessment and plan: Patient demonstrates pulmonary edema in setting of volume overload. Echocardiogram Impressions: LVEF 65%. Indeterminate diastolic function. Normal right ventricular structure and function. Probably moderate, eccentric mitral regurgitation that is not well visualized by color-flow imaging. Mild-moderate tricuspid regurgitation. Mild pulmonic regurgitation. Mild pulmonary hypertension. - Plan as discussed above Qualifiers: Congestive heart failure chronicity: acute Qualified Code(s): I50.31 - Acute diastolic (congestive) heart failure (7) DVT prophylaxis Current Visit: Yes Status: Acute Assessment and plan: Patient on Eliquis - Subjective Interval history: Patient seen and evaluated patient bedside this morning. She is alert awake interactive in no acute distress. She required BiPAP overnight due to worsening of respiratory status. This morning she demonstrates increased effort with breathing and demonstrates that she is short of breath while talking. She required oxygen mask on 10 L to maintain oxygen saturation greater than 88%. She has family at bedside to demonstrate concern, plan was discussed all questions were answered. They wish to consider her intubation status if necessary. - Constitutional Vitals: Temp Pulse Resp BP Pulse Ox 98.5 F 73 14 132/59 97 04/01/17 07:07 04/01/17 07:07 04/01/17 07:07 04/01/17 07:07 04/01/17 07:07 General appearance: Present: cooperative, A&O X 3 (hard of hearing), pleasant, no acute distress, answers questions appropriately Exam: General: Patient alert, awake, oriented 3, interactive, in mild respiratory distress. HEENT: Normocephalic, atraumatic, pupils equal reactive to light, nasal cavity patent and open septum median position, oral mucosa dry, neck supple trachea midline no palpable lymphadenopathy, no thyromegaly. Chest: Symmetric bilateral correlating with respiratory effort, effort nonlabored. Cardiac: Irregularly irregular heart rate and rhythm, no bruits appreciated bilateral carotids, Radial pulses 2+ bilateral, posterior tibial and dorsal pedal pulses 2+ bilateral. Respiratory: Wheezing appreciated in upper lobes, rhonchi and bilateral lower lobes Abdomen: Soft, nontender, positive bowel sounds, no palpable masses appreciated on examination Extremities: Symmetric bilateral, bilateral lower extremities without erythema or edema patient moving all 4 extremities spontaneously. Neurologic: No focal deficits appreciated on examination. Face symmetric, muscle strength symmetric bilateral upper and lower extremities. Internal Medicine: Result - Labs CBC & Chem 7: 03/31/17 04:55 04/01/17 04:46 Labs: BMP 04/01/17 04:46 Sodium 128 L Potassium 4.0 Chloride 96 L Carbon Dioxide 23 BUN 30 H Creatinine 1.42 H Glucose 206 H Calcium 8.7 - ABG Interpretation ABG results: ABG ABG pH 7.37 pH Units (7.32-7.45) 04/01/17 04:07 ABG pCO2 40 mmHg (35-45) 04/01/17 04:07 ABG pO2 85 mmHg (85-104) 04/01/17 04:07 ABG O2 Saturation 96 % (95-98) 04/01/17 04:07 - Impressions Impressions Chest CTA 03/29/17 22:06 IMPRESSION: 1. No evidence of pulmonary embolism. 2. Findings in the lungs suggestive of pulmonary edema, including interlobular septal thickening at the lung apices, mild parahilar airspace opacities, and small bilateral effusions. Diffuse infection would be a less likely possibility. 3. Coronary atherosclerosis. 4. Extensive mitral annular calcifications. 5. Partially visualized densities in the renal collecting system bilaterally, which could represent small staghorn calculi. D/ /30/2017 13:07:05 Herberth Mina MD / francois Interpreting Provider: Herberth Mina MD Echocardiogram 03/30/17 17:41 Impressions: LVEF 65%. Indeterminate diastolic function. Normal right ventricular structure and function. Probably moderate, eccentric mitral regurgitation that is not well visualized by color-flow imaging. Mild-moderate tricuspid regurgitation. Mild pulmonic regurgitation. Mild pulmonary hypertension. Left Ventricular Wall Motion: Rest Echo Findings All wall segments showed normal motion. Findings: Study Quality * Technically sub-optimal due to clinical status - patient very SOB. ECG Findings * Atrial fibrillation. Left Ventricle * LVEF 65%. * Normal LV chamber size, wall thickness and function. * Indeterminate diastolic function. Right Ventricle * Normal right ventricular structure and function. Left Atrium * Moderately dilated left atrium. Right Atrium * Normal right atrial size. Aortic Valve * No aortic regurgitation. * Aortic valve not well visualized. * No aortic stenosis. Mitral Valve * Moderate mitral annular calcification * Mild thickening and calcification - leaflet excursion suboptimally visualized. * No stenosis. * Probably moderate, eccentric mitral regurgitation. Tricuspid Valve * Tricuspid valve not well visualized. * Mild-moderate tricuspid regurgitation. * Estimated RA pressure is 8 mmHg. * Estimated RVSP is 45 mmHg. * Mild pulmonary hypertension. Pulmonic Valve * Pulmonic valve is not well visualized. * No pulmonic stenosis. * Mild pulmonic regurgitation. Pulmonary Artery * Pulmonary artery not well visualized. Aorta * Normally sized aortic root. Interatrial Septum * No evidence of PFO by color Doppler. Pericardium * There is no pericardial effusion present. IVC * The IVC is not dilated. * < 50% respiratory change. Chest X-Ray 04/01/17 03:51 IMPRESSION: Interval development of pulmonary vascular congestion and small bilateral pleural effusions. Findings are suggestive for CHF. D/ / Joycelyn Barry MD / Joycelyn Barry MD Interpreting Provider: Joycelyn Barry MD Consult Discharge Plan - Plan Referrals: Manjula Yee CNP [Primary Care Provider] - 04/06/17 10:00 am <José Viera - Last Filed: 04/01/17 19:04> Date of Encounter: 04/01/17 - Assessment and plan (1) Acute respiratory failure Current Visit: Yes Status: Acute Qualifiers: Respiratory failure complication: hypoxia Qualified Code(s): J96.01 - Acute respiratory failure with hypoxia (2) Pulmonary edema Current Visit: Yes Status: Acute Qualifiers: Chronicity: acute Qualified Code(s): J81.0 - Acute pulmonary edema (3) Diastolic CHF Current Visit: Yes Status: Acute Qualifiers: Congestive heart failure chronicity: acute Qualified Code(s): I50.31 - Acute diastolic (congestive) heart failure (4) Diabetes mellitus Current Visit: Yes Status: Chronic Qualifiers: Diabetes mellitus type: type 2 Diabetes mellitus complication status: with unspecified complications Diabetes mellitus jail insulin use: without intermodal dispatcher use Qualified Code(s): E11.8 - Type 2 diabetes mellitus with unspecified complications (5) Atrial fibrillation Current Visit: Yes Status: Chronic Qualifiers: Atrial fibrillation type: chronic Qualified Code(s): I48.2 - Chronic atrial fibrillation (6) Hypertension Current Visit: Yes Status: Chronic Qualifiers: Hypertension type: essential hypertension Qualified Code(s): I10 - Essential (primary) hypertension - Constitutional Vitals: Temp Pulse Resp BP Pulse Ox 98.1 F 87 20 100/58 88 04/01/17 15:13 04/01/17 15:13 04/01/17 15:43 04/01/17 15:13 04/01/17 15:43 Internal Medicine: Result - Labs CBC & Chem 7: 03/31/17 04:55 04/01/17 04:46 Labs: BMP 04/01/17 04:46 Sodium 128 L Potassium 4.0 Chloride 96 L Carbon Dioxide 23 BUN 30 H Creatinine 1.42 H Glucose 206 H Calcium 8.7 - ABG Interpretation ABG results: ABG ABG pH 7.37 pH Units (7.32-7.45) 04/01/17 04:07 ABG pCO2 40 mmHg (35-45) 04/01/17 04:07 ABG pO2 85 mmHg (85-104) 04/01/17 04:07 ABG O2 Saturation 96 % (95-98) 04/01/17 04:07 - Impressions Impressions Chest X-Ray 04/01/17 03:51 IMPRESSION: Interval development of pulmonary vascular congestion and small bilateral pleural effusions. Findings are suggestive for CHF. D/ / Joycelyn Barry MD / Joycelyn Barry MD Interpreting Provider: Joycelyn Barry MD - Attending Attestation I examined this patient and my medical decision-making was reviewed with the Resident Physician on 04/01/17. I agree with the documented findings, disposition and treatment plan as described except to the extent set forth below. Ms Ayala is currently admitted for acute hypoxic resp failure due to pulmonary edema. She remains high risk due to potential for worsening respiratory status. Ms Ayala has been having increased dyspnea over last 24 hours. No CP. No fever or chills. Has required bipap intermittently. Exam Alert. Mod resp distress Mucus membranes dry Heart irreg Lungs with rales Abd soft Edema present I/P 1. Hypoxic resp failure 2. CHF/pulmonary edema Further diagnoses and plan as above.
[2017-04-01] MEDS ORDERED: Acetaminophen 325 MG TABLET PO PRN (10:33)
--- NOTE | 2017-04-01 10:55 | Cardiology Progress Note ---
Date of Encounter: 04/01/17 Time of Encounter: 10:53 Assessment and Plan (1) Elevated troponin Current Visit: Yes Status: Acute Troponin 0.06, 0.11, 0.06, in setting of lactic acidosis, URI, A-Fib RVR, CHF. Suspect demand ischemia, nondiagnostic for ACS. Does admit to intermittent chest pain over the past two weeks. No exacerbating factors. Reports "getting air" improves the pain. EKG A-Fib RVR, prior anteroseptal NH. Pt denies prior cardiac hx. Echo reveals preserved EF, 65%, mild-moderate valvular dysfunction. Pt is DNR-CCA-DNI. Dr. Oliva discussed [facility] with her, which she stated she would not want to have. (2) Atrial fibrillation with RVR Current Visit: Yes Status: Acute New diagnosis, in setting of diastolic CHF. Pt converted back to SR yesterday, but now back in A-Fib RVR, increasing O2 requirements now requiring BiPAP, despite being on IV diuresis. IV Lasix increased to 40mg BID. Renal function worsened today--monitor closely. Recommend rechecking for influenza. On PO Cardizem CD 120mg daily and Toprol XL 100mg daily. HR currently 90s-110s. Will restart Cardizem gtt. Echo EF 65%, moderate MR, mild-moderate TR, mild NM, mild htn. [id number] (Age, HTN, Female, DM). Pt denies falls. No severe valvular dysfunction on echo. High CVA risk, recommend sales order administrator anticoagulation. Kelly checked Eliquis and Xarelto, $47/month. Checked with pt, she is unsure if this is going to be affordable sales order administrator, but does not want to be on Coumadin. Started Eliquis, gave a free 30 day rx coupon card. Family at bedside state they will help with Eliquis cost. (3) Diastolic CHF Current Visit: Yes Status: Acute Small bilateral pleural effusions on chest CTA, pulmonary edema. CXR this AM suggestive of CHF. Diastolic. Echo EF preserved. O2 requirements increased, pt now requiring BiPAP. IV Lasix increased to 40mg BID. Monitor renal function closely. Recommend 2L fluid restriction, strict I/Os, Na restriction, daily weights. Qualifiers: Congestive heart failure chronicity: acute Qualified Code(s): I50.31 - Acute diastolic (congestive) heart failure Discussion w patient/family: The assessment and plan as outlined above was discussed with the patient and/or family members who expressed understanding and agreement. All questions were answered. Thank you for involving us in the care of your patient. Please call with any questions. I will discuss all the above with Dr. Oliva and make changes as necessary. Subjective Principal diagnosis: A-Fib RVR Interval history: Cardiology reconsulted. Pt has went back into A-Fib RVR. O2 requirements increased and pt is now on BiPAP. CXR earlier this AM suggests new development of CHF since prior CXR. HR at bedside 90s-110s. Pt reports difficulty breathing and chest tightness when trying to lay flat. IV Lasix was increased to 40mg IV BID. Objective Vital Signs, Last 4 Hours Temp Pulse Resp BP Pulse Ox 04/01/17 10:06 22 100 04/01/17 07:07 98.5 F 73 14 132/59 97 Vital Signs Temp Pulse Resp BP Pulse Ox 04/01/17 10:06 22 100 04/01/17 07:07 98.5 F 73 14 132/59 97 04/01/17 04:24 20 98 04/01/17 04:05 22 96 04/01/17 03:58 79 20 179/75 90 03/31/17 22:56 16 92 03/31/17 19:00 97.9 F 65 24 135/88 93 03/31/17 16:35 16 91 03/31/17 15:14 97.1 F L 74 28 120/77 91 03/31/17 11:24 97.9 F 73 22 154/77 89 Intake and Output 03/31/17 04/01/17 04/01/17 23:59 07:59 15:59 Intake Total 240 / 240 0 / 0 Output Total 0 / 0 450 / 450 Balance 240 / 240 -450 / -450 Intake: Oral 240 / 240 0 / 0 Output: Urine 0 / 0 200 / 200 Catheter 250 / 250 Urethral (Mai) 200 / 200 Other: Meal Dinner Percent of Meal Consumed 80% Blood Glucose* 315 215 General: Conversant, Other (biPAP) HEENT: Atraumatic, Normocephaly, Mucus Membranes Moist Neck: Normal carotid pulses Cardiac: Other (irregularly irregular, 2/6 ROZINA) Lungs: Other (diminished) Neuro: Alert and responsive, No focal deficits noted Abdomen: Soft, Non-Tender Skin: No rashes noted on visualized skin Musculoskeletal: No Chest Wall Tenderness Extremities: No Clubbing, No Cyanosis, No Edema, Normal Pulses Results 03/31/17 04:55 04/01/17 04:46 Lab Results 03/31/17 04/01/17 16:11 04:46 APTT 61.4 H D Sodium 128 L Potassium 4.0 Chloride 96 L Carbon Dioxide 23 BUN 30 H Creatinine 1.42 H Glucose 206 H Calcium 8.7 Magnesium 2.1 BMP 04/01/17 Range/Units 04:46 Sodium 128 L (136-145) mEq/L Potassium 4.0 (3.5-5.1) mEq/L Chloride 96 L (98-107) mEq/L Carbon Dioxide 23 (23-29) mEq/L BUN 30 H (8-23) mg/dL Creatinine 1.42 H (0.60-1.20) mg/dL Glucose 206 H (70-105) mg/dL Calcium 8.7 (8.6-10.3) mg/dL Impressions Chest X-Ray 04/01/17 03:51 IMPRESSION: Interval development of pulmonary vascular congestion and small bilateral pleural effusions. Findings are suggestive for CHF. D/ / Joycelyn Barry MD / Joycelyn Barry MD Interpreting Provider: Joycelyn Barry MD Active Medications Acetaminophen (Tylenol) 650 mg PO Q6HR PRN PRN Reason: Mild pain and fever Stop: 10/01/17 10:34 Hydrocodone Bitart/Acetaminophen ([place] 5-325 Mg) 1 tab PO Q4HR PRN PRN Reason: Moderate Pain (4-6) Stop: 09/28/17 21:14 Last Admin: 03/31/17 15:28 Dose: 1 tab Albuterol/Ipratropium (Duoneb) 3 ml IH [id number] PRN PRN Reason: Shortness Of Breath/Wheezing Stop: 09/28/17 21:32 Last Admin: 03/30/17 16:09 Dose: 3 ml Albuterol/Ipratropium (Duoneb) 3 ml IH [id number] [facility] Stop: 09/28/17 22:01 Last Admin: 04/01/17 10:05 Dose: 3 ml Apixaban (Eliquis) 5 mg PO BID [facility] Stop: 09/30/17 21:01 Last Admin: 04/01/17 08:53 Dose: 5 mg Ascorbic Acid (Vitamin C) 500 mg PO DAILY [facility] Stop: 09/29/17 09:01 Last Admin: 04/01/17 08:52 Dose: 500 mg Aspirin (Aspirin Ec) 81 mg PO DAILY [facility] Stop: 10/01/17 09:01 Last Admin: 04/01/17 08:52 Dose: 81 mg Calcium Carbonate (Tums) 500 mg PO DAILY [facility] Stop: 09/29/17 09:01 Last Admin: 04/01/17 08:53 Dose: 500 mg Dextrose/Water (Dextrose 50% (Syg)) 25 ml IVP AD PRN PRN Reason: Hypoglycemia Stop: 09/28/17 21:17 Diltiazem HCl (Cardizem Cd) 120 mg PO DAILY [facility] Stop: 09/30/17 11:31 Last Admin: 04/01/17 08:53 Dose: 120 mg Famotidine (Pepcid) 20 mg PO DAILY [facility] Stop: 09/29/17 09:01 Last Admin: 04/01/17 08:52 Dose: 20 mg Furosemide (Lasix) 40 mg IVP BIDDIURETIC [facility] Stop: 10/01/17 10:42 Glucagon (Glucagen) 1 mg IM ONCE PRN PRN Reason: Hypoglycemia Stop: 09/28/17 21:17 Glucose (Gluctose) 15 gm PO ONCE PRN PRN Reason: Hypoglycemia Stop: 09/28/17 21:17 Glucose (Gluctose) 30 gm PO ONCE PRN PRN Reason: Hypoglycemia Stop: 09/28/17 21:17 Dextrose (Dextrose 5%) 1,000 mls @ 100 mls/hr IVC .Q10H PRN PRN Reason: HYPOGLYCEMIA Stop: 09/28/17 21:17 Azithromycin 500 mg/ Dextrose 250 mls @ 252 mls/hr IVPB Q24H [facility] Stop: 09/29/17 17:01 Last Admin: 03/31/17 17:20 Dose: 252 mls/hr Ceftriaxone Sodium 1,000 mg/ (Sterile Water) 10 mls @ 300 mls/hr IVP DAILY [facility] Stop: 09/29/17 09:01 Last Admin: 04/01/17 08:53 Dose: 300 mls/hr Insulin Detemir (Levemir) 8 unit SQ HS [facility] Stop: 10/01/17 21:01 Insulin Human Lispro (Humalog) 0 units SQ TIDAC [facility] PRN Reason: Protocol Stop: 09/29/17 07:31 Insulin Human Lispro (Humalog) 0 units SQ HS [facility] PRN Reason: Protocol Stop: 09/28/17 21:34 Magnesium Oxide (Mag-Ox) 200 mg PO DAILY [facility] Stop: 09/29/17 09:01 Last Admin: 04/01/17 08:52 Dose: 200 mg Metoprolol Succinate (Toprol Xl) 100 mg PO DAILY [facility] Stop: 09/29/17 09:01 Last Admin: 04/01/17 08:53 Dose: 100 mg Morphine Sulfate (Morphine Sulfate) 1 mg IVP Q3H PRN PRN Reason: Moderate Pain Stop: 10/01/17 04:23 Last Admin: 04/01/17 08:53 Dose: 1 mg Multivitamins/Calcium (Thera M Plus) 1 tab PO DAILY [facility] Stop: 09/29/17 09:01 Last Admin: 04/01/17 08:52 Dose: 1 tab Naloxone HCl (Narcan) 0.4 mg IVP Q2MIN PRN PRN Reason: Opioid Reversal Stop: 09/28/17 21:14 Nitroglycerin (Nitroglycerin) 0.4 mg SL Q5MIN PRN PRN Reason: Chest Pain Stop: 09/29/17 00:31 Last Admin: 03/30/17 00:29 Dose: 0.4 mg Ondansetron HCl (Zofran) 4 mg IVP Q6HR PRN PRN Reason: Nausea And Vomiting Stop: 09/28/17 21:14 Last Admin: 03/31/17 20:45 Dose: 4 mg Throat Lozenges (Cepacol Sore Throat Lozenge) 1 each MM Q2H PRN PRN Reason: Sore Throat Stop: 09/29/17 20:32 Last Admin: 03/30/17 22:34 Dose: 1 each Trazodone HCl (Trazodone) 25 mg PO HS [facility] Stop: 09/30/17 21:01 Last Admin: 03/31/17 23:35 Dose: 25 mg - Imaging and Cardiology Echo: report reviewed - EKG Interpretation EKG results cardiology: other (12 hr tele AVG HR 79, now back in A-Fib RVR) Consult Discharge Plan - Plan Referrals: Manjula Yee GOVERNMENT CLERK [Primary Care Provider] - 04/06/17 10:00 am
[2017-04-01 17:06] LABS: Adenovirus Not Detected (Not Detect); Coronavirus 229E Not Detected (Not Detect); Coronavirus HKU1 Not Detected (Not Detect); Coronavirus NL63 Not Detected (Not Detect); Coronavirus OC43 Not Detected (Not Detect); Human Metapneumovirus Not Detected (Not Detect); Human Rhinovirus/Enterovirus Not Detected (Not Detect); Influenza A Subtype 2009 H1 Not Detected (Not Detect); Influenza A Untypeable Not Detected (Not Detect); Influenza B Not Detected (Not Detect); Parainfluenza Virus 1 Not Detected (Not Detect); Parainfluenza Virus 2 Not Detected (Not Detect); Parainfluenza Virus 3 Not Detected (Not Detect); Parainfluenza Virus 4 Not Detected (Not Detect)
[2017-04-01 17:07] LABS: Bordetella Pertussis Not Detected (Not Detect); Chlamydophila pneumoniae Not Detected (Not Detect); Mycoplasma pneumoniae Not Detected (Not Detect); Respiratory Syncytial Virus Not Detected (Not Detect)
[2017-04-01] MEDS: Azithromycin 500 MG in D5% in Water 250 ML IVPB SCH (17:34)
[2017-04-01] MEDS ORDERED: 0.9 % Sodium Chloride 1,000 ML ONE (18:52)
[2017-04-01] MEDS ORDERED: methylPREDNISolone 125 MG/2 ML VIAL IVP ONE (19:18)
[2017-04-01] MEDS: traZODone 50 MG TABLET PO SCH (20:27)
[2017-04-01] MEDS: *HR* HYDROcodone/Acet 5/325 mg TABLET PO PRN (20:28)
[2017-04-01] MEDS ORDERED: Insulin DETEMIR 100 UNIT/ML X5UNITS SQ SCH (21:00)
[2017-04-02] MEDS: Ipratropium/Albuterol Neb 3 ML IH SCH ×4 (04:03→21:51)
[2017-04-02 05:56] LABS: Basophils % 0.2 %; Eosinophils % 0.1 %; Hemoglobin 10.3 g/dL (11.5-15.4); Immature Granulocytes % 0.5 % (0-4); Immature Platelets 20.2 % (1.1-6.1); Lymphocytes # 1.1 K/mcL (0.6-4.6); Lymphocytes % 8.1 %; Mean Corpuscular HGB Conc 33.2 g/dL (31.6-35.5); Mean Corpuscular Hemoglobin 31.9 pg (28.0-33.3); Mean Platelet Volume 13.7 fL (9.4-12.4); Monocytes # 0.3 K/mcL (0.0-1.3); Monocytes % 2.4 %; Neutrophils # 11.8 K/mcL (1.6-8.9); Platelet Count 180 K/mcL (140-400); Red Blood Count 3.23 M/mcL (3.82-4.97); Red Cell Distribution Width 12.4 % (11.5-14.5); Segmented Neutrophils % 88.7 %
[2017-04-02 06:20] LABS: Albumin 3.6 g/dL (3.5-5.7); Albumin/Globulin Ratio 1.2 (1.1-2.2); Bilirubin,Total 0.4 mg/dL (0.3-1.0); Calcium 8.6 mg/dL (8.6-10.3); Globulin 3.1 g/dL (2.4-3.5); Potassium 4.4 mEq/L (3.5-5.1); Total Protein 6.7 g/dL (6.4-8.9)
[2017-04-02] MEDS: Magnesium Oxide 400 MG TABLET PO SCH (08:11)
[2017-04-02] MEDS: Apixaban 5 MG TABLET PO SCH ×2 (08:12→20:36)
[2017-04-02] MEDS: Ascorbic Acid 500 MG TABLET PO SCH (08:12)
[2017-04-02] MEDS: Multivit/Ca/Min/Fe/FA 1 TAB TABLET PO SCH (08:12)
[2017-04-02] MEDS: cefTRIAXone 1,000 MG in Water for inj. (sterile) 20 ML 10 ML IVP SCH (08:13)
[2017-04-02] MEDS: Metoprolol XL (24 HR) Succ 50 MG TAB.ER.24H PO SCH (08:13)
[2017-04-02] MEDS: Aspirin Enteric Coated 81 MG Tablet PO SCH (08:13)
[2017-04-02] MEDS: Famotidine 20 MG TABLET PO SCH (08:13)
[2017-04-02] MEDS: Furosemide 20 MG/2 ML VIAL IVP SCH (08:14)
[2017-04-02] MEDS: Insulin LISPRO 300 UNITS/3 ML VIAL SQ SCH ×4 (08:15→23:29)
--- NOTE | 2017-04-02 09:55 | Cardiology Progress Note ---
Date of Encounter: 04/02/17 Time of Encounter: 09:49 Assessment and Plan (1) Diastolic CHF Current Visit: Yes Status: Acute Small bilateral pleural effusions on chest CTA, pulmonary edema. CXR yesterday with CHF. Diastolic. Echo EF preserved. Recheck BNP. O2 requirements increased, pt now requiring BiPAP. IV Lasix 40mg BID. Monitor renal function closely, mild worsening. Recommend 2L fluid restriction, strict I/Os, Na restriction, daily weights. Will continue to follow. Qualifiers: Congestive heart failure chronicity: acute Qualified Code(s): I50.31 - Acute diastolic (congestive) heart failure (2) Elevated troponin Current Visit: Yes Status: Acute Troponin 0.06, 0.11, 0.06, in setting of lactic acidosis, URI, A-Fib RVR, CHF. Suspect demand ischemia, nondiagnostic for ACS. Does admit to intermittent chest pain over the past two weeks. No exacerbating factors. Reports "getting air" improves the pain. EKG A-Fib RVR, prior anteroseptal [place]. Pt denies prior cardiac hx. Echo reveals preserved EF, 65%, mild-moderate valvular dysfunction. Pt is DNR-CCA-DNI. LHC was discussed, pt declines. (3) Atrial fibrillation with RVR Current Visit: Yes Status: Acute New diagnosis, in setting of diastolic CHF. Pt converted back to SR. Restart PO Cardizem CD 120mg daily and continue Toprol XL 100mg daily. Echo EF 65%, moderate MR, mild-moderate TR, mild PA, mild htn. [id number] (Age, HTN, Female, DM). Pt denies falls. No severe valvular dysfunction on echo. High CVA risk, recommend marine oil terminal superintendent anticoagulation. Kelly checked Eliquis and Xarelto, $47/month. Checked with pt, she is unsure if this is going to be affordable marine oil terminal superintendent, but does not want to be on Coumadin. Started Eliquis, gave a free 30 day rx coupon card. Family at bedside state they will help with Eliquis cost. Discussion w patient/family: The assessment and plan as outlined above was discussed with the patient and/or family members who expressed understanding and agreement. All questions were answered. Thank you for involving us in the care of your patient. Please call with any questions. I will discuss all the above with Dr. Haley and make changes as necessary. Subjective Principal diagnosis: A-Fib RVR Interval history: Pt on BiPAP this AM. Has converted back to SR, off cardizem gtt. Creatinine 1.56 , worsened from yesterday. Still reports lower extremity edema. Objective Vital Signs, Last 4 Hours Temp Pulse Resp BP Pulse Ox 04/02/17 07:39 97.9 F 71 18 126/75 91 Vital Signs Temp Pulse Resp BP Pulse Ox 04/02/17 07:39 97.9 F 71 18 126/75 91 04/02/17 04:26 98.8 F 59 13 121/70 90 04/02/17 04:03 13 91 04/01/17 23:57 98.9 F 90 23 123/81 88 04/01/17 23:42 13 95 04/01/17 21:03 90 04/01/17 20:00 98.8 F 91 26 123/67 90 04/01/17 15:43 20 88 04/01/17 15:13 98.1 F 87 14 100/58 96 04/01/17 11:09 97.6 F 84 14 100/65 94 04/01/17 10:06 22 100 Intake and Output 04/01/17 04/02/17 04/02/17 23:59 07:59 15:59 Intake Total 145 / 145 Output Total 50 / 50 200 / 200 Balance 95 / 95 -200 / -200 Intake: IV Fluids 25 / 25 Cardizem 125 MG In 0.9 % Sodium 25 / 25 Chloride 100 ML @ 5 MG/HR 5 mls/hr IVC .Q24H [facility] Rx#: [id number] Oral 120 / 120 Output: Catheter 50 / 50 200 / 200 Other: Meal Dinner Percent of Meal Consumed 5% Blood Glucose* 249 270 General: Conversant, Other (on bipap) HEENT: Atraumatic, Normocephaly, Mucus Membranes Moist Neck: No JVD, Normal carotid pulses Cardiac: Reg Rate and Rhythm, Normal S1 and S2, Other (2/6 ROZINA) Lungs: Other (rhonchi noted bilaterally) Neuro: Alert and responsive, No focal deficits noted Abdomen: Soft, Non-Tender Skin: No rashes noted on visualized skin Musculoskeletal: No Chest Wall Tenderness Extremities: No Clubbing, No Cyanosis, No Edema (1+ BLE edema) Results 04/02/17 05:03 04/02/17 05:03 Lab Results 04/02/17 04/02/17 05:03 05:03 WBC 13.3 H Hgb 10.3 L Hct 31.0 L Plt Count 180 Sodium 126 L Potassium 4.4 Chloride 93 L Carbon Dioxide 23 BUN 41 H Creatinine 1.56 H Glucose 249 H Calcium 8.6 Total Bilirubin 0.4 AST 52 H ALT 56 H Alkaline Phosphatase 57 Short CBC 04/02/17 Range/Units 05:03 WBC 13.3 H (4.3-11.1) K/mcL Hgb 10.3 L (11.5-15.4) g/dL Hct 31.0 L (35.3-44.9) % Plt Count 180 (140-400) K/mcL Neutrophils # 11.8 H (1.6-8.9) K/mcL BMP 04/02/17 Range/Units 05:03 Sodium 126 L (136-145) mEq/L Potassium 4.4 (3.5-5.1) mEq/L Chloride 93 L (98-107) mEq/L Carbon Dioxide 23 (23-29) mEq/L BUN 41 H (8-23) mg/dL Creatinine 1.56 H (0.60-1.20) mg/dL Glucose 249 H (70-105) mg/dL Calcium 8.6 (8.6-10.3) mg/dL Liver Function 04/02/17 Range/Units 05:03 Total Bilirubin 0.4 (0.3-1.0) mg/dL AST 52 H (13-39) Units/L ALT 56 H (7-52) Units/L Alkaline Phosphatase 57 (34-104) Units/L Albumin 3.6 (3.5-5.7) g/dL Active Medications Acetaminophen (Tylenol) 650 mg PO Q6HR PRN PRN Reason: Mild pain and fever Stop: 10/01/17 10:34 Last Admin: 04/01/17 11:08 Dose: 650 mg Hydrocodone Bitart/Acetaminophen (Nursery 5-325 Mg) 1 tab PO Q4HR PRN PRN Reason: Moderate Pain (4-6) Stop: 09/28/17 21:14 Last Admin: 04/01/17 20:28 Dose: 1 tab Albuterol/Ipratropium (Duoneb) 3 ml IH [id number] PRN PRN Reason: Shortness Of Breath/Wheezing Stop: 09/28/17 21:32 Last Admin: 03/30/17 16:09 Dose: 3 ml Albuterol/Ipratropium (Duoneb) 3 ml IH [id number] [facility] Stop: 09/28/17 22:01 Last Admin: 04/02/17 04:03 Dose: 3 ml Apixaban (Eliquis) 5 mg PO BID [facility] Stop: 09/30/17 21:01 Last Admin: 04/02/17 08:12 Dose: 5 mg Ascorbic Acid (Vitamin C) 500 mg PO DAILY [facility] Stop: 09/29/17 09:01 Last Admin: 04/02/17 08:12 Dose: 500 mg Aspirin (Aspirin Ec) 81 mg PO DAILY [facility] Stop: 10/01/17 09:01 Last Admin: 04/02/17 08:13 Dose: 81 mg Calcium Carbonate (Tums) 500 mg PO DAILY [facility] Stop: 09/29/17 09:01 Last Admin: 04/01/17 08:53 Dose: 500 mg Dextrose/Water (Dextrose 50% (Syg)) 25 ml IVP AD PRN PRN Reason: Hypoglycemia Stop: 09/28/17 21:17 Diltiazem HCl (Cardizem Cd) 120 mg PO DAILY [facility] Stop: 10/02/17 09:16 Famotidine (Pepcid) 20 mg PO DAILY [facility] Stop: 09/29/17 09:01 Last Admin: 04/02/17 08:13 Dose: 20 mg Furosemide (Lasix) 40 mg IVP BIDDIURETIC [facility] Stop: 10/01/17 10:42 Last Admin: 04/02/17 08:14 Dose: 40 mg Glucagon (Glucagen) 1 mg IM ONCE PRN PRN Reason: Hypoglycemia Stop: 09/28/17 21:17 Glucose (Gluctose) 15 gm PO ONCE PRN PRN Reason: Hypoglycemia Stop: 09/28/17 21:17 Glucose (Gluctose) 30 gm PO ONCE PRN PRN Reason: Hypoglycemia Stop: 09/28/17 21:17 Dextrose (Dextrose 5%) 1,000 mls @ 100 mls/hr IVC .Q10H PRN PRN Reason: HYPOGLYCEMIA Stop: 09/28/17 21:17 Azithromycin 500 mg/ Dextrose 250 mls @ 252 mls/hr IVPB Q24H [facility] Stop: 09/29/17 17:01 Last Admin: 04/01/17 17:34 Dose: 252 mls/hr Ceftriaxone Sodium 1,000 mg/ (Sterile Water) 10 mls @ 300 mls/hr IVP DAILY [facility] Stop: 09/29/17 09:01 Last Admin: 04/02/17 08:13 Dose: 300 mls/hr Insulin Detemir (Levemir) 8 unit SQ HS [facility] Stop: 10/01/17 21:01 Last Admin: 04/01/17 20:27 Dose: 8 unit Insulin Human Lispro (Humalog) 0 units SQ TIDAC [facility] PRN Reason: Protocol Stop: 09/29/17 07:31 Last Admin: 04/02/17 08:15 Dose: 8 units Insulin Human Lispro (Humalog) 0 units SQ HS [facility] PRN Reason: Protocol Stop: 09/28/17 21:34 Last Admin: 04/01/17 20:28 Dose: 3 units Magnesium Oxide (Mag-Ox) 200 mg PO DAILY [facility] Stop: 09/29/17 09:01 Last Admin: 04/02/17 08:11 Dose: 200 mg Metoprolol Succinate (Toprol Xl) 100 mg PO DAILY [facility] Stop: 09/29/17 09:01 Last Admin: 04/02/17 08:13 Dose: 100 mg Morphine Sulfate (Morphine Sulfate) 1 mg IVP Q3H PRN PRN Reason: Moderate Pain Stop: 10/01/17 04:23 Last Admin: 04/01/17 17:25 Dose: 1 mg Multivitamins/Calcium (Thera M Plus) 1 tab PO DAILY [facility] Stop: 09/29/17 09:01 Last Admin: 04/02/17 08:12 Dose: 1 tab Naloxone HCl (Narcan) 0.4 mg IVP Q2MIN PRN PRN Reason: Opioid Reversal Stop: 09/28/17 21:14 Nitroglycerin (Nitroglycerin) 0.4 mg SL Q5MIN PRN PRN Reason: Chest Pain Stop: 09/29/17 00:31 Last Admin: 03/30/17 00:29 Dose: 0.4 mg Ondansetron HCl (Zofran) 4 mg IVP Q6HR PRN PRN Reason: Nausea And Vomiting Stop: 09/28/17 21:14 Last Admin: 03/31/17 20:45 Dose: 4 mg Sodium Chloride (Sodium Chloride) 1 gm PO BID [facility] Stop: 10/02/17 09:01 Last Admin: 04/02/17 08:13 Dose: 1 gm Throat Lozenges (Cepacol Sore Throat Lozenge) 1 each MM Q2H PRN PRN Reason: Sore Throat Stop: 09/29/17 20:32 Last Admin: 03/30/17 22:34 Dose: 1 each Trazodone HCl (Trazodone) 25 mg PO HS [facility] Stop: 09/30/17 21:01 Last Admin: 04/01/17 20:27 Dose: 25 mg - Imaging and Cardiology Echo: report reviewed Consult Discharge Plan - Plan Referrals: Manjula Yee CNP [Primary Care Provider] - 04/06/17 10:00 am
--- NOTE | 2017-04-02 11:20 | Nephrology Consult Note ---
Date of Encounter: 04/02/17 Time of Encounter: 11:17 Assessment and Plan (1) AMANDA (acute kidney injury) Current Visit: Yes Status: Acute AMANDA likely diuretic induced Okay to give intermittent doses of Lasix as needed for significant pulmonary edema, continue CPAP If respiratory function worsens, recommend pulmonology evaluation Strict I&Os Continue fluid restriction Closely monitor renal function Avoid Metformin due to elevated Cr (2) Hyponatremia Current Visit: Yes Status: Acute Likely diuretic induced Urine osmolality, urine sodium, and urine creatinine pending Renal diet Continue to monitor (3) Diabetes mellitus Current Visit: Yes Status: Chronic HGB a1c pending Avoid Metformin due to elevated Cr Continue SSI Management per primary team Qualifiers: Diabetes mellitus type: type 2 Diabetes mellitus complication status: with unspecified complications Diabetes mellitus intermediate insulin use: without joint terminal attack controller use Qualified Code(s): E11.8 - Type 2 diabetes mellitus with unspecified complications History of Present Illness - Reason for Consult Consult date: 04/02/17 Acute Kidney Injury, hyponatremia Requesting physician: José Viera - Chief Complaint CP - History of Present Illness Ms. Ayala is a 89 year old female with PMH of HTN, DM with home Metformin use , and breast cancer s/p mastectomy who was transferred to [place] on 03/29/17 for chest pain and URI. Patient was found to have acute respiratory failure, A-fib RVR, and diastolic CHF. Patient was started on IV diuresis due to worsening respiratory status and pulmonary edema. Nephrology was consulted 04/02/17 due to elevated creatinine and hyponatremia. Patient reports imprved SOB with BiPap use. Patient's fluid balance is 1.7L net positive during this hospitalization and she has a dennis in place. Past Med Surg Social Fam HX - Past Medical History Medical history: cancer, diabetes, GERD, hypertension Psychiatric history: no psych history - Past Surgical History Surgical History: breast surgery, cancer surgery - Social History Smoking Status: Never smoker Smokeless Tobacco Status: No Alcohol use: none Drug use: none Medications and Allergies Amlodipine Besylate 10 mg PO DAILY 07/30/16 [History] Ascorbate Calcium [Vitamin C] 500 mg PO DAILY 07/30/16 [History] Aspirin [Ecotrin] 325 mg PO DAILY 07/30/16 [History] Calcium Carbonate [Calcium] 500 mg PO DAILY 07/30/16 [History] Famotidine [Pepcid] 40 mg PO DAILY 07/30/16 [History] Garlic 500 mg PO DAILY 07/30/16 [History] Magnesium Oxide [Magnesium] 250 mg PO DAILY 07/30/16 [History] Metoprolol XL (24 HR) Succ [Toprol XL] 100 mg PO DAILY 07/30/16 [History] Multivits Min/Iron/FA/Herb#186 [Hair, Skin & Nails Caplet] 1 tab PO DAILY [History] [place]-3/Dha/Epa/Fish Oil [Fish Oil 500 mg Softgel] 500 mg PO DAILY 07/30/16 [ History] Triamterene/HCTZ 37.5/25mg [Dyazide] 1 each PO DAILY 07/30/16 [History] Zinc Acetate [Galzin] 50 mg PO DAILY 07/30/16 [History] metFORMIN [Glucophage] 500 mg PO BIDWM 07/30/16 [History] Potassium Gluconate [Potassium] 500 mg PO HS 03/29/17 [History] 3 Allergy/AdvReac Type Severity Reaction Status Date / Time doxazosin [From Cardura] Allergy Swelling Verified 07/30/16 09:58 of Lip/Tongue/Throat lisinopril Allergy Swelling Verified 07/30/16 09:58 of Lip/Tongue/Throat simvastatin [From Zocor] Allergy Swelling Verified 07/30/16 09:58 of Lip/Tongue/Throat Review of Systems Constitutional: fatigue, weakness, no chills, no fever(s) Nose, mouth and throat: no dizziness, no sore throat Cardiovascular: dyspnea, edema, pedal edema Respiratory: cough, dyspnea, chest congestion Gastrointestinal: no abdominal pain, no nausea, no vomiting Genitourinary Female: no dysuria, no urinary frequency, no urinary urgency Musculoskeletal: no numbness, no tingling Integumentary: swelling, no rash Neurological: no numbness, no tingling Psychiatric: no anxiety, no depression Exam - Vital Signs Vital signs: Initial Vital Signs Temp Pulse Resp BP Pulse Ox 98 F 82 22 150/68 100 03/29/17 19:41 03/29/17 19:41 03/29/17 19:41 03/29/17 19:41 03/29/17 19:41 Vital Signs - Last 8 Hours Temp Pulse Resp BP Pulse Ox 04/02/17 07:39 97.9 F 71 18 126/75 91 04/02/17 04:26 98.8 F 59 13 121/70 90 04/02/17 04:03 13 91 Intake and Output 04/01/17 04/02/17 04/02/17 23:59 07:59 15:59 Intake Total 145 / 145 120 / 120 Output Total 50 / 50 200 / 200 Balance 95 / 95 -200 / -200 120 / 120 Intake: IV Fluids 25 / 25 Cardizem 125 MG In 0.9 % Sodium 25 / 25 Chloride 100 ML @ 5 MG/HR 5 mls/hr IVC .Q24H [facility] Rx#: [id number] Oral 120 / 120 120 / 120 Output: Catheter 50 / 50 200 / 200 Other: Meal Dinner Breakfast Percent of Meal Consumed 5% 15% Blood Glucose* 249 270 - General Appearance General appearance: well-developed, well-nourished, appears started age EENT: ATNC, PERRL, mucous membranes moist Neck: no JVD, supple Additional Comments: decreased bibasilar breath sounds, equal bilaterally, wearing bipap Cardiology: edema (1+ pedal edema), regular rate, regular rhythm Additional Comments: 2/6 ROZINA Gastrointestinal: normoactive bowel sounds, no tenderness, no guarding, no organomegaly Integumentary: no rash, warm and dry Neurologic: no focal deficit, alert and oriented x3 Musculoskeletal: no deformities, no erythema Psychiatric: mood/affect appropriate, cooperative Results - Lab Results 04/02/17 05:03 04/02/17 05:03 Most recent lab results ABG pH 7.37 pH Units (7.32-7.45) 04/01/17 04:07 ABG pCO2 40 mmHg (35-45) 04/01/17 04:07 ABG pO2 85 mmHg (85-104) 04/01/17 04:07 ABG HCO3 23 mEq/L (21-27) 04/01/17 04:07 ABG O2 Saturation 96 % (95-98) 04/01/17 04:07 Calcium 8.6 mg/dL (8.6-10.3) 04/02/17 05:03 Phosphorus 2.6 mg/dL (2.7-4.5) L 03/30/17 05:19 Magnesium 2.1 mg/dL (1.6-2.6) 04/01/17 04:46 Consult Discharge Plan - Plan Referrals: Manjula Yee CNP [Primary Care Provider] - 04/06/17 10:00 am
[2017-04-02] MEDS: Diltiazem CD (24hr) 120 MG CAPSULE PO SCH (12:24)
[2017-04-02] MEDS: *HR* HYDROcodone/Acet 5/325 mg TABLET PO PRN ×3 (14:35→23:12)
[2017-04-02 15:31] LABS: Hemoglobin A1C 6.1 %
--- NOTE | 2017-04-02 15:50 | Internal Med Progress Note ---
<Chuck Morales Armadno - Last Filed: 04/02/17 15:40> Date of Encounter: 04/02/17 Time of Encounter: 07:30 - Assessment and plan (1) Acute respiratory failure Current Visit: Yes Status: Acute Assessment and plan: Acute respiratory failure worsened over night. Mrs. Ayala demonstrated decompensation and respiratory status last evening. She was back into atrial fibrillation with rapid ventricular rate oxygen demand requiring BiPAP to maintain oxygen saturations greater than 88%. Repeat chest x-ray demonstrates progression of pulmonary edema with blunting of costophrenic angles bilaterally and increased pulmonary vascularization. ABG performed demonstrating a pH of 7.37, PCO2 40, PO2 85 and a bicarbonate 23 with oxygen saturations at 96% on BiPAP. 04/01: Evaluation this morning demonstrates this Lucy alert awake oriented interactive on BiPAP answering questions appropriately. She continues to have crackles in bilateral lung bases and was placed on nasal Oxygen demonstrates desaturation into the mid 80s. Clinically she appears labored respiratory effort. Decompensation of respiratory status secondary to rapid ventricular rate and worsening pulmonary edema 04/02: Respiratory status worsened overnight, continues to require BiPAP on 80% FiO2. Continue IV diuresis in the setting of pulmonary edema. Will consult pulmonology for further recommendations given not improvement in patient's respiratory status despite treatment of pulmonary edema and volume overload. - Continue IV diuresis with Lasix 40mg BID IV - adjust rate control. - Monitor volume status closely - Wean oxygen as tolerated Qualifiers: Respiratory failure complication: hypoxia Qualified Code(s): J96.01 - Acute respiratory failure with hypoxia (2) Hypertension Current Visit: Yes Status: Chronic Assessment and plan: Hold amlodipine, blood pressure currently appropriate - Continue rate control medications Cardizem and Toprol. - Adjust blood pressure medications as blood pressure stabilizes. Qualifiers: Hypertension type: essential hypertension Qualified Code(s): I10 - Essential (primary) hypertension (3) Diabetes mellitus Current Visit: Yes Status: Chronic Assessment and plan: Patient is a known type II diabetic currently hyperglycemic. Last A1c was 6.5 in April, continue to require increase insulin during inpatient stay. Plan: - Low-dose inpatient sliding scale - Levemir 8 units at bedtime initial dose now - Before meals at bedtime glucose checks Qualifiers: Diabetes mellitus type: type 2 Diabetes mellitus complication status: with unspecified complications Diabetes mellitus penitentiary insulin use: without penitentiary use Qualified Code(s): E11.8 - Type 2 diabetes mellitus with unspecified complications (4) Atrial fibrillation with RVR Current Visit: Yes Status: Acute Assessment and plan: Likely secondary to increased systemic volume. Patient transitioned into normal sinus rhythm this morning, respiration status is not improved. Cardiology continues to follow -Continue Cardizem 120 mg daily and metoprolol 100 mg by mouth daily - Rate controlled at this time - Day 1 of Eliquis (5) Cardiac murmur Current Visit: Yes Status: Acute Assessment and plan: Patient has finding of grade 2/6 systolic ejection murmur. Echocardiogram supportive findings. May benefit from it transesophageal echocardiogram at this time patient is too unstable. Further evaluation would be recommended to evaluate the mitral regurgitation. This may be contributing to the patient's pulmonary edema and may benefit from intervention if patient chooses to undergo therapy in the future. Echocardiogram: Impressions: LVEF 65%. Indeterminate diastolic function. Normal right ventricular structure and function. Probably moderate, eccentric mitral regurgitation that is not well visualized by color-flow imaging. Mild-moderate tricuspid regurgitation. Mild pulmonic regurgitation. Mild pulmonary hypertension. - Cardiology following appreciate recommendations (6) Diastolic CHF Current Visit: Yes Status: Acute Assessment and plan: Patient demonstrates pulmonary edema in setting of volume overload. Continue with IV diuresis, this is contributing to her acute respiratory failure. Echocardiogram Impressions: LVEF 65%. Indeterminate diastolic function. Normal right ventricular structure and function. Probably moderate, eccentric mitral regurgitation that is not well visualized by color-flow imaging. Mild-moderate tricuspid regurgitation. Mild pulmonic regurgitation. Mild pulmonary hypertension. - Plan as discussed above Qualifiers: Congestive heart failure chronicity: acute Qualified Code(s): I50.31 - Acute diastolic (congestive) heart failure (7) AMANDA (acute kidney injury) Current Visit: Yes Status: Acute Assessment and plan: Patient has worsening renal function the setting of diuresis with IV Lasix 40 mg twice a day. Creatinine elevated from 0.68 on 08/28/2017 and currently 1.56 on 04/02/2017. Acute kidney injury multifactorial with IV diuresis in the setting of diastolic heart failure and poor renal perfusion. It is necessary to continue with IV diuresis as patient demonstrated worsening respiratory status requiring BiPAP in the setting of pulmonary edema. Plan: - Continue to monitor renal function closely avoid nephrotoxic medications and renally dose antibiotics - Nephrology consult, discussed with Dr. Rashid - We will hold off on IV fluids at this time in the setting of pulmonary edema and worsening respiratory status. (8) Hyponatremia Current Visit: Yes Status: Acute Assessment and plan: Sodium 126 down from 136 3 days ago. Patient is received multiple doses of IV Lasix to treat diastolic heart failure and pulmonary edema. Sodium trending down slowly, patient is asymptomatic. Plan: - 1 g sodium chloride tablet by mouth twice a day - Discussed with nephrology (9) DVT prophylaxis Current Visit: Yes Status: Acute Assessment and plan: Patient on Eliquis - Subjective Interval history: Patient seen and evaluated patient bedside this morning. She is alert awake interactive requiring BiPAP to maintain oxygen saturations greater than 88%, rest status mildly labored. She states that she is tolerating the BiPAP but is not comfortable. She also complains of constipation but denies any fevers, chills, nausea vomiting diarrhea constipation chest pain or palpitations abdominal pain or urinary difficulties with the catheter. She is concerned that she is not improving respiratory cheng and lengthy discussion with all questions were had with daughters at bedside. - Constitutional Vitals: Temp Pulse Resp BP Pulse Ox 98.1 F 88 19 126/75 90 04/02/17 12:38 04/02/17 12:38 04/02/17 12:38 04/02/17 07:39 04/02/17 12:38 General appearance: Present: cooperative, A&O X 3 (hard of hearing), pleasant, no acute distress, answers questions appropriately Exam: General: Patient alert, awake, oriented 3, interactive, in mild respiratory distress on BiPAP. HEENT: Normocephalic, atraumatic, pupils equal reactive to light, nasal cavity patent and open septum median position, oral mucosa dry, neck supple trachea midline no palpable lymphadenopathy, no thyromegaly. Chest: Symmetric bilateral correlating with respiratory effort, effort nonlabored. Cardiac: Irregularly irregular heart rate and rhythm, no bruits appreciated bilateral carotids, Radial pulses 2+ bilateral, posterior tibial and dorsal pedal pulses 2+ bilateral. Respiratory: Wheezing appreciated in upper lobes, rhonchi and bilateral lower lobes Abdomen: Soft, nontender, positive bowel sounds, no palpable masses appreciated on examination Extremities: Symmetric bilateral, bilateral lower extremities without erythema or edema patient moving all 4 extremities spontaneously. Neurologic: No focal deficits appreciated on examination. Face symmetric, muscle strength symmetric bilateral upper and lower extremities. Internal Medicine: Result - Labs CBC & Chem 7: 04/02/17 05:03 04/02/17 05:03 Labs: Short CBC 04/02/17 Range/Units 05:03 WBC 13.3 H (4.3-11.1) K/mcL Hgb 10.3 L (11.5-15.4) g/dL Hct 31.0 L (35.3-44.9) % Plt Count 180 (140-400) K/mcL Neutrophils # 11.8 H (1.6-8.9) K/mcL BMP 04/02/17 05:03 Sodium 126 L Potassium 4.4 Chloride 93 L Carbon Dioxide 23 BUN 41 H Creatinine 1.56 H Glucose 249 H Calcium 8.6 Liver Function 04/02/17 Range/Units 05:03 Total Bilirubin 0.4 (0.3-1.0) mg/dL AST 52 H (13-39) Units/L ALT 56 H (7-52) Units/L Alkaline Phosphatase 57 (34-104) Units/L Albumin 3.6 (3.5-5.7) g/dL - ABG Interpretation ABG results: ABG ABG pH 7.37 pH Units (7.32-7.45) 04/01/17 04:07 ABG pCO2 40 mmHg (35-45) 04/01/17 04:07 ABG pO2 85 mmHg (85-104) 04/01/17 04:07 ABG O2 Saturation 96 % (95-98) 04/01/17 04:07 Consult Discharge Plan - Plan Referrals: Manjula Yee CNP [Primary Care Provider] - 04/06/17 10:00 am <José Viera - Last Filed: 04/02/17 19:45> Date of Encounter: 04/02/17 - Assessment and plan (1) Acute respiratory failure Current Visit: Yes Status: Acute Qualifiers: Respiratory failure complication: hypoxia Qualified Code(s): J96.01 - Acute respiratory failure with hypoxia (2) Pulmonary edema Current Visit: Yes Status: Acute Qualifiers: Chronicity: acute Qualified Code(s): J81.0 - Acute pulmonary edema (3) Diastolic CHF Current Visit: Yes Status: Acute Qualifiers: Congestive heart failure chronicity: acute Qualified Code(s): I50.31 - Acute diastolic (congestive) heart failure (4) Diabetes mellitus Current Visit: Yes Status: Chronic Qualifiers: Diabetes mellitus type: type 2 Diabetes mellitus complication status: with unspecified complications Diabetes mellitus terminal system operator insulin use: without penitentiary use Qualified Code(s): E11.8 - Type 2 diabetes mellitus with unspecified complications (5) Atrial fibrillation Current Visit: Yes Status: Chronic Qualifiers: Atrial fibrillation type: chronic Qualified Code(s): I48.2 - Chronic atrial fibrillation (6) Hypertension Current Visit: Yes Status: Chronic Qualifiers: Hypertension type: essential hypertension Qualified Code(s): I10 - Essential (primary) hypertension (7) AMANDA (acute kidney injury) Current Visit: Yes Status: Acute - Constitutional Vitals: Temp Pulse Resp BP Pulse Ox 98.1 F 79 26 135/74 93 04/02/17 19:36 04/02/17 19:36 04/02/17 19:36 04/02/17 19:36 04/02/17 19:36 Internal Medicine: Result - Labs CBC & Chem 7: 04/02/17 05:03 04/02/17 05:03 Labs: Short CBC 04/02/17 Range/Units 05:03 WBC 13.3 H (4.3-11.1) K/mcL Hgb 10.3 L (11.5-15.4) g/dL Hct 31.0 L (35.3-44.9) % Plt Count 180 (140-400) K/mcL Neutrophils # 11.8 H (1.6-8.9) K/mcL BMP 04/02/17 05:03 Sodium 126 L Potassium 4.4 Chloride 93 L Carbon Dioxide 23 BUN 41 H Creatinine 1.56 H Glucose 249 H Calcium 8.6 Liver Function 04/02/17 Range/Units 05:03 Total Bilirubin 0.4 (0.3-1.0) mg/dL AST 52 H (13-39) Units/L ALT 56 H (7-52) Units/L Alkaline Phosphatase 57 (34-104) Units/L Albumin 3.6 (3.5-5.7) g/dL - ABG Interpretation ABG results: ABG ABG pH 7.37 pH Units (7.32-7.45) 04/01/17 04:07 ABG pCO2 40 mmHg (35-45) 04/01/17 04:07 ABG pO2 85 mmHg (85-104) 04/01/17 04:07 ABG O2 Saturation 96 % (95-98) 04/01/17 04:07 - Attending Attestation I examined this patient and my medical decision-making was reviewed with the Resident Physician on 04/02/17. I agree with the documented findings, disposition and treatment plan as described except to the extent set forth below. Ms Ayala is currently admitted for acute resp failure and CHF. She remains high risk due to potential for worsening respiratory status and continued need for CPAP. Ms Ayala had a lot of dyspnea overnight but seems to be a little better this afternoon. Her creatinine has increased. She has been on and off CPAP today. Exam Alert. More comfortable but still mod resp distress Mucus membranes dry Heart not tachy Diminished lung sounds Edema improving I/P 1. Resp failure 2. CHF Further diagnoses and plan as above.
--- NOTE | 2017-04-02 18:53 | Pulmonology Consult Note ---
Date of Encounter: 04/02/17 Time of Encounter: 09:15 Assessment and Plan (1) Acute respiratory failure Current Visit: Yes Status: Acute Patient seen on noninvasive ventilation and I had made some changes from BiPAP ST to AVAPS mode and patient seems to tolerate that mode much better and it is reasonable to have this on and off to keep patient comfortable as much as possible. I have explained this also family at the bedside and discussed with primary team. I would agree with diuresis and clearly there is evidence of pulmonary edema on the CT chest with groundglass appearance as well as pleural effusion. I have also discussed with primary team to check the pleural effusion with ultrasound and if reasonable size then thoracentesis may be reasonable as a comfort measure. Thank you very much for consultation and please call for any questions Qualifiers: Respiratory failure complication: hypoxia Qualified Code(s): J96.01 - Acute respiratory failure with hypoxia (2) Atrial fibrillation with RVR Current Visit: Yes Status: Acute (3) Diastolic CHF Current Visit: Yes Status: Acute Qualifiers: Congestive heart failure chronicity: acute Qualified Code(s): I50.31 - Acute diastolic (congestive) heart failure (4) Pulmonary edema Current Visit: Yes Status: Acute Qualifiers: Chronicity: acute Qualified Code(s): J81.0 - Acute pulmonary edema History of Present Illness Consult date: 04/02/17 Requesting physician: José Viera Reason for consult: hypoxemia Chief complaint: Chest pain History of present illness: This is a pleasant 89-year-old female with complicated past medical history and very hard of hearing and this history is taken some from the patient and also from the family at the bedside. Patient has been having worsening hypoxia and diuresis was initiated. Patient has been on noninvasive ventilation, but it has been uncomfortable for the patient and pulmonary consult date for an evaluation and further recommendations. Patient stated her breathing is somewhat better on the noninvasive ventilation but mainly the mask is bothering her. She was presented with chest pain and cardiology has seen the patient. There is no significant productive cough and no history of hemoptysis. Patient has URI like symptoms before admission and also history of nausea and vomiting. Past Med Surg Social Fam HX - Past Medical History Medical history: cancer, diabetes, GERD, hypertension Psychiatric history: no psych history - Past Surgical History Surgical History: breast surgery, cancer surgery - Social History Smoking Status: Never smoker Smokeless Tobacco Status: No Alcohol use: none Drug use: none Medications and Allergies Amlodipine Besylate 10 mg PO DAILY 07/30/16 [History] Ascorbate Calcium [Vitamin C] 500 mg PO DAILY 07/30/16 [History] Aspirin [Ecotrin] 325 mg PO DAILY 07/30/16 [History] Calcium Carbonate [Calcium] 500 mg PO DAILY 07/30/16 [History] Famotidine [Pepcid] 40 mg PO DAILY 07/30/16 [History] Garlic 500 mg PO DAILY 07/30/16 [History] Magnesium Oxide [Magnesium] 250 mg PO DAILY 07/30/16 [History] Metoprolol XL (24 HR) Succ [Toprol XL] 100 mg PO DAILY 07/30/16 [History] Multivits Min/Iron/FA/Herb#186 [Hair, Skin & Nails Caplet] 1 tab PO DAILY [History] Aydlett-3/Dha/Epa/Fish Oil [Fish Oil 500 mg Softgel] 500 mg PO DAILY 07/30/16 [ History] Triamterene/HCTZ 37.5/25mg [Dyazide] 1 each PO DAILY 07/30/16 [History] Zinc Acetate [Galzin] 50 mg PO DAILY 07/30/16 [History] metFORMIN [Glucophage] 500 mg PO BIDWM 07/30/16 [History] Potassium Gluconate [Potassium] 500 mg PO HS 03/29/17 [History] 3 Allergy/AdvReac Type Severity Reaction Status Date / Time doxazosin [From Cardura] Allergy Swelling Verified 07/30/16 09:58 of Lip/Tongue/Throat lisinopril Allergy Swelling Verified 07/30/16 09:58 of Lip/Tongue/Throat simvastatin [From Zocor] Allergy Swelling Verified 07/30/16 09:58 of Lip/Tongue/Throat All Systems: A 10-system review of systems was performed and is negative for pertinent findings except as documented above in the HPI. Physical Examination Vital Signs: Vital Signs, Last 4 Hours Temp Pulse Resp BP Pulse Ox 04/02/17 16:00 97.9 F 69 17 129/75 90 General appearance: appears uncomfortable Eyes: nonicteric ENT: oropharynx dry Neck: supple Effort: mildly labored Inspection: hyperextended Auscultation: bilateral: diminished breath sounds Percussion: left: not dull, right: dull Cardiovascular: irregular rhythm Gastrointestinal: normoactive bowel sounds, non-distended Extremities: no cyanosis, edema normal mental status, non-focal exam mood appropriate Results - Laboratory Findings CBC and BMP: 04/02/17 05:03 04/02/17 05:03 ABG ABG pH 7.37 pH Units (7.32-7.45) 04/01/17 04:07 ABG pCO2 40 mmHg (35-45) 04/01/17 04:07 ABG pO2 85 mmHg (85-104) 04/01/17 04:07 ABG O2 Saturation 96 % (95-98) 04/01/17 04:07 Abnormal lab findings: Abnormal lab results WBC 13.3 K/mcL (4.3-11.1) H 04/02/17 05:03 RBC 3.23 M/mcL (3.82-4.97) L 04/02/17 05:03 Hgb 10.3 g/dL (11.5-15.4) L 04/02/17 05:03 Hct 31.0 % (35.3-44.9) L 04/02/17 05:03 MPV 13.7 fL (9.4-12.4) H 04/02/17 05:03 Neutrophils # 11.8 K/mcL (1.6-8.9) H 04/02/17 05:03 Immature Plt Fraction 20.2 % (1.1-6.1) H 04/02/17 05:03 APTT 61.4 Seconds (26.0-36.0) H D 03/31/17 16:11 Heparin Anti-Xa, Unfract 1.01 IU/mL (0.30-0.70) H* 03/30/17 20:30 Sodium 126 mEq/L (136-145) L 04/02/17 05:03 Chloride 93 mEq/L (98-107) L 04/02/17 05:03 BUN 41 mg/dL (8-23) H 04/02/17 05:03 Creatinine 1.56 mg/dL (0.60-1.20) H 04/02/17 05:03 Est GFR ( Amer) 38 (> 60) L 04/02/17 05:03 Est GFR (Non-Af Amer) 31 (> 60) L 04/02/17 05:03 Glucose 249 mg/dL (70-105) H 04/02/17 05:03 POC Glucose 249 (58-89) H 04/01/17 20:02 Hemoglobin A1c 6.1 % (-5.6) H 04/02/17 12:20 Phosphorus 2.6 mg/dL (2.7-4.5) L 03/30/17 05:19 AST 52 Units/L (13-39) H 04/02/17 05:03 ALT 56 Units/L (7-52) H 04/02/17 05:03 Troponin I 0.06 ng/mL (< 0.04) H* 03/30/17 05:19 Triglycerides 249 mg/dL (< 150) H 03/30/17 05:19 VLDL Cholesterol, Calc 50 mg/dL (< 31) H 03/30/17 05:19 HDL Cholesterol 35 mg/dL (40-59) L 03/30/17 05:19 - Diagnostic Findings CT scan - chest: report reviewed, image reviewed - Clinical Findings Intake & Output: Intake & Output 04/02/17 04/02/17 04/02/17 07:59 15:59 23:59 Intake Total 360 / 360 Output Total 200 / 200 200 / 200 Balance -200 / -200 160 / 160 Consult Discharge Plan - Plan Referrals: Manjula Yee CNP [Primary Care Provider] - 04/06/17 10:00 am
[2017-04-02] MEDS ORDERED: MOM Conc 10 ML UD.LIQ PO PRN (19:28)
[2017-04-02 19:42] LABS: Bilirubin,Urine Negative (Negative); Blood,Urine Large (Negative); Clarity,Urine Turbid (Clear); Color,Urine Red (Yellow); Glucose,Urine (UA) Normal (Normal); Ketones,Urine Trace mg/dL (Negative); Leukocyte Esterase,Urine Small (Negative); Nitrite,Urine Negative (Negative); Protein,Urine 100 mg/dL (Neg-Trace); Specific Gravity,Urine 1.025 (1.010-1.025); Urobilinogen,Urine Normal (Normal)
[2017-04-02 19:44] LABS: RBC,Urine TNTC per hpf (0-3); Squamous Epithelial Cell,Urine Many per lpf (None-Few); WBC,Urine 30-50 per hpf (0-3)
[2017-04-02 20:12] LABS: Hyaline Casts,Urine Few per lpf (None-Few)
[2017-04-02 20:13] LABS: Bacteria,Urine Few per hpf (None-Few)
[2017-04-02] MEDS: *HR* Morphine 2 MG/ML SYRINGE IVP PRN (20:35)
[2017-04-02] MEDS: traZODone 50 MG TABLET PO SCH (20:36)
[2017-04-02] MEDS ORDERED: Insulin DETEMIR 100 UNIT/ML X5UNITS SQ SCH (21:00)
[2017-04-02] MEDS ORDERED: *HR* HYDROmorphone (PF) 1 MG/ML SYRINGE IVP PRN (21:06)
[2017-04-02 23:18] LABS: Sodium, Urine 10.2 mEq/L
[2017-04-02] MEDS: Ipratropium/Albuterol Neb 3 ML IH PRN (23:44)
[2017-04-03] MEDS ORDERED: Furosemide 240 MG in D5% in Water 96 ML IVC SCH (00:30)
[2017-04-03] MEDS: Nitroglycerin 1 INCH/GM PACKET TP SCH ×2 (00:42→09:13)
[2017-04-03] MEDS: Ipratropium/Albuterol Neb 3 ML IH SCH ×3 (03:43→15:56)
--- NOTE | 2017-04-03 05:11 | Event Note ---
<Lake Chávez - Last Filed: 04/03/17 05:05> Date of Encounter: 04/03/17 Time of Encounter: 00:15 I received a call from the floor nurse stating the patient was experiencing respiratory distress and the family was concerned. I went to the room and examined the patient who appeared to be in mild to moderate respiratory distress and was off BiPAP at that time. She did appear to have significant crackles in her lungs at the bases bilaterally, however I did not note any accessory muscle usage. She did appear to be saturating in the low to mid 80s for the most part. I immediately ordered for the patient to receive a breathing treatment which was beneficial, however she still was not consistently saturating above 88%. The patient's family refused morphine due to prior adverse reaction, so instead I started the patient on low dose Dilaudid to help ease the anxiety related to respiratory distress, I also gave her nitroglycerin paste and started her on a lasix drip. The patient is experiencing a worsening AMANDA, her respiratory status required use of diuretics. I spoke with the patient and her family about this plan, and affirmed that the patient wishes not to receive an intubation for worsening respiratory status. Her family asked for her to be kept comfortable. The patient clinically improved , and I watched closely throughout the night. <Flash Orozoc - Last Filed: 04/04/17 20:37> Date of Encounter: 04/04/[address] Chávez, and I agree.
[2017-04-03 06:51] LABS: INR 2.5; Prothrombin Time 27.2 Seconds (9.4-12.1)
[2017-04-03 07:10] LABS: Albumin 3.4 g/dL (3.5-5.7); Albumin/Globulin Ratio 1.1 (1.1-2.2); Bilirubin,Total 0.4 mg/dL (0.3-1.0); Calcium 8.4 mg/dL (8.6-10.3); Potassium 4.6 mEq/L (3.5-5.1); Total Protein 6.4 g/dL (6.4-8.9)
[2017-04-03 08:35] LABS: Immature Granulocytes % 0.6 % (0-4); Lymphocytes # 1.2 K/mcL (0.6-4.6); Lymphocytes % 5.9 %; Mean Corpuscular HGB Conc 32.3 g/dL (31.6-35.5); Mean Corpuscular Hemoglobin 30.9 pg (28.0-33.3); Mean Corpuscular Volume 95.7 fL (83.0-100.0); Mean Platelet Volume 13.5 fL (9.4-12.4); Monocytes # 1.5 K/mcL (0.0-1.3); Monocytes % 7.6 %; Neutrophils # 17.4 K/mcL (1.6-8.9); Platelet Count 211 K/mcL (140-400); Red Blood Count 3.24 M/mcL (3.82-4.97); Red Cell Distribution Width 12.5 % (11.5-14.5); Segmented Neutrophils % 85.9 %
[2017-04-03] MEDS: Famotidine 20 MG TABLET PO SCH (09:13)
[2017-04-03] MEDS: Diltiazem CD (24hr) 120 MG CAPSULE PO SCH (09:13)
[2017-04-03] MEDS: Apixaban 5 MG TABLET PO SCH (09:13)
[2017-04-03] MEDS: Aspirin Enteric Coated 81 MG Tablet PO SCH (09:13)
[2017-04-03] MEDS: Multivit/Ca/Min/Fe/FA 1 TAB TABLET PO SCH (09:13)
[2017-04-03] MEDS: Metoprolol XL (24 HR) Succ 50 MG TAB.ER.24H PO SCH (09:13)
[2017-04-03] MEDS: Magnesium Oxide 400 MG TABLET PO SCH (09:13)
[2017-04-03] MEDS: Ascorbic Acid 500 MG TABLET PO SCH (09:13)
[2017-04-03] MEDS: Insulin LISPRO 300 UNITS/3 ML VIAL SQ SCH ×2 (09:14→12:18)
[2017-04-03] MEDS ORDERED: Tolvaptan 15 MG TABLET PO ONE (11:10)
--- NOTE | 2017-04-03 11:10 | Nephrology Progress Note ---
Date of Encounter: 04/03/17 Time of Encounter: 10:00 - Assessment and Plan (1) AMANDA (acute kidney injury) Current Visit: Yes Status: Acute Nonoliguric AMANDA with hypervolemic hyponatremia. Etiology of the AMANDA is most likely multifactorial including IV contrast exposure on 03/30/17 plus worsening cardiac hemodynamics plus diuretics. Agree that she needs diuretics at this point, especially since last night she developed pulm edema. Would cont the lasix gtt but would anticipate/expect to see her SCr elevate tomorrow. Also since the hyponatremia continues to worsen, I had long discussion regarding volume status, diuretics and would rec starting Tolvaptan (R/B/I and SE profile discussed) 15mg po x1 and dose based upon response. Goal is to correct the PNa about 6-8mEq per 24hr. Cont the Mai catheter as she is likely to have increased UOP with the lasix gtt and Tolvaptan. Since she edematous and not responding to the NaCl solution, I instead recommend diuresis and Tolvaptan to correct the hypervolemic hyponatremia. Pending the afternoon BMP results that I had ordered. I counseled both the pt and her daughters for >50% of the 20-25 min encounter. I reviewed her progress notes, med lists, labs, vitals and imaging and discussed her care and recommendations with both the Hospitalists and pt's daughters. Continue to follow a renal protective strategy as able. Will follow with you. Thank you. (2) Atrial fibrillation with RVR Current Visit: Yes Status: Acute As per primary. (3) Hyponatremia Current Visit: Yes Status: Acute See above (4) Pulmonary edema Current Visit: Yes Status: Acute See above Qualifiers: Chronicity: acute Qualified Code(s): J81.0 - Acute pulmonary edema (5) Acute respiratory failure Current Visit: Yes Status: Acute See above Qualifiers: Respiratory failure complication: hypoxia Qualified Code(s): J96.01 - Acute respiratory failure with hypoxia Subjective Principal diagnosis: A-Fib RVR Interval history: Pt was seen/examined. I reviewed her progress notes, med lists, labs, vitals and imaging and discussed her care and recommendations with both the Hospitalists and pt's daughters. The pt affirmed feeling short of breath last night and I reviewed the event note from the night team: she had required resumption of diuretics. Today she did not affirm N/V/D or confusion. She was not able to carry an in depth conversation d/t the BiPAP. Objective - Vital Signs Vital signs: Vital Signs Temp Pulse Resp BP Pulse Ox 04/03/17 10:39 16 92 04/03/17 07:26 98.1 F 86 14 136/71 90 04/03/17 04:15 97.9 F 64 21 119/79 88 04/03/17 03:43 18 89 04/02/17 23:10 98.9 F 2 26 162/64 92 04/02/17 21:51 18 94 04/02/17 20:56 88 04/02/17 19:36 98.1 F 79 26 135/74 93 04/02/17 16:00 97.9 F 69 17 129/75 90 04/02/17 12:38 98.1 F 88 19 90 Intake and Output 04/02/17 04/03/17 04/03/17 23:59 07:59 15:59 Intake Total 30 / 30 Output Total 350 / 350 25 / 25 Balance -350 / -350 5 / 5 Intake: Oral 30 / 30 Output: Catheter 350 / 350 25 / 25 Other: Meal Breakfast Percent of Meal Consumed 5% Blood Glucose* 252 239 - General Appearance General appearance: Present: appears started age, chronically ill, frail EENT: Present: ATNC, mucous membranes moist Neck: Present: supple Respiratory: Present: course breath sounds Cardiology: Present: holosystolic murmur, edema (1+ pretibial pitting bilaterally), regular rate, regular rhythm, irregular rhythm, normal S1, normal S2 Gastrointestinal: Present: no tenderness, no guarding Integumentary: Present: warm and dry, ecchymotic Neurologic: Present: no focal deficit, no asterixis, alert and oriented x3 Musculoskeletal: Present: no cyanosis, no clubbing Psychiatric: Present: mood/affect appropriate, cooperative - Lab 04/03/17 06:35 04/03/17 06:35 Most recent lab results ABG pH 7.37 pH Units (7.32-7.45) 04/01/17 04:07 ABG pCO2 40 mmHg (35-45) 04/01/17 04:07 ABG pO2 85 mmHg (85-104) 04/01/17 04:07 ABG HCO3 23 mEq/L (21-27) 04/01/17 04:07 ABG O2 Saturation 96 % (95-98) 04/01/17 04:07 Calcium 8.4 mg/dL (8.6-10.3) L 04/03/17 06:35 Phosphorus 2.6 mg/dL (2.7-4.5) L 03/30/17 05:19 Magnesium 2.1 mg/dL (1.6-2.6) 04/01/17 04:46 Urine Creatinine 177 mg/dL 04/02/17 23:00 Urine Sodium 10.2 mEq/L 04/02/17 23:00 Consult Discharge Plan - Plan Referrals: Manjula Yee CNP [Primary Care Provider] - 04/06/17 10:00 am
--- NOTE | 2017-04-03 11:14 | Cardiology Progress Note ---
Date of Encounter: 04/03/17 Time of Encounter: 11:05 Assessment and Plan (1) Diastolic CHF Current Visit: Yes Status: Acute Small bilateral pleural effusions on chest CTA, pulmonary edema. CXR repeated today much increased severity of bilateral airspace disease due to increasing edema. Portions of the disease appears consolidative, superimposed pneumonia cannot be excluded. No significant change of bilateral pleural effusions Echo EF preserved. BNP 404 on admission, 546 today. Pt still requiring BiPAP, went into respiratory distress overnight after Lasix was stopped despite being on BiPAP. IV Lasix was started at 10mg/hr, renal function continues to worsen, nephrology following. Recommend 2L fluid restriction, strict I/Os, Na restriction, daily weights. Pt does not want any invasive procedures. At this time her prognosis is very poor. She is DNR-CCA-DNI. Palliative care has been consulted with family meeting planned for today. Anticipate sign off, as cardiology has no further recommendations. Will further discuss with Dr. Haley as well. Qualifiers: Congestive heart failure chronicity: acute Qualified Code(s): I50.31 - Acute diastolic (congestive) heart failure (2) Elevated troponin Current Visit: Yes Status: Acute Troponin 0.06, 0.11, 0.06, in setting of lactic acidosis, URI, A-Fib RVR, CHF. Suspect demand ischemia, nondiagnostic for ACS. Does admit to intermittent chest pain over the past two weeks. No exacerbating factors. Reports "getting air" improves the pain. EKG A-Fib RVR, prior anteroseptal RI. Pt denies prior cardiac hx. Echo reveals preserved EF, 65%, mild-moderate valvular dysfunction. Pt is DNR-CCA-DNI. LHC was discussed, pt declines any invasive procedures. (3) Atrial fibrillation with RVR Current Visit: Yes Status: Acute New diagnosis, in setting of diastolic CHF. Pt converted back to SR. Continue PO Cardizem CD 120mg daily and continue Toprol XL 100mg daily. Echo EF 65%, moderate MR, mild-moderate TR, mild [place], mild htn. [id number] (Age, HTN, Female, DM). Pt denies falls. No severe valvular dysfunction on echo. 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 Kelly checked Eliquis, $47/month. Eliquis was started, but reports mild hemoptysis and large amount of blood detected in UA. Will discuss with Dr. Haley, but prognosis is guarded. Palliative care involved. Family meeting later today. If hospice route is decided, recommend stopping Eliquis. Discussion w patient/family: The assessment and plan as outlined above was discussed with the patient and/or family members who expressed understanding and agreement. All questions were answered. Thank you for involving us in the care of your patient. Please call with any questions. I will discuss all the above with Dr. Haley and make changes as necessary. Subjective Principal diagnosis: A-Fib RVR Interval history: Pt remains on BiPAP. CXR much increased severity of bilateral airspace disease due to increasing edema. Portions of the disease appears consolidative, superimposed pneumonia cannot be excluded. No significant change of bilateral pleural effusions. Event note overnight, pt developed respiratory distress. Lasix gtt was started despite worsening renal function due to her respiratory status. BNP rechecked--404 on admission, now 546. Objective Vital Signs, Last 4 Hours Temp Pulse Resp BP Pulse Ox 04/03/17 10:39 16 92 04/03/17 07:26 98.1 F 86 14 136/71 90 Vital Signs Temp Pulse Resp BP Pulse Ox 04/03/17 11:03 97.6 F 95 14 125/59 90 04/03/17 10:39 16 92 04/03/17 07:26 98.1 F 86 14 136/71 90 04/03/17 04:15 97.9 F 64 21 119/79 88 04/03/17 03:43 18 89 04/02/17 23:10 98.9 F 2 26 162/64 92 04/02/17 21:51 18 94 04/02/17 20:56 88 04/02/17 19:36 98.1 F 79 26 135/74 93 04/02/17 16:00 97.9 F 69 17 129/75 90 04/02/17 12:38 98.1 F 88 19 90 Intake and Output 04/02/17 04/03/17 04/03/17 23:59 07:59 15:59 Intake Total 30 / 30 Output Total 350 / 350 225 / 225 Balance -350 / -350 -195 / -195 Intake: Oral 30 / 30 Output: Catheter 350 / 350 225 / 225 Other: Meal Breakfast Percent of Meal Consumed 5% Blood Glucose* 252 239 253 General: Conversant, Other (on BiPAP) HEENT: Atraumatic, Normocephaly, Mucus Membranes Moist Neck: Normal carotid pulses Cardiac: Reg Rate and Rhythm, Normal S1 and S2 Lungs: Other (crackles) Neuro: Alert and responsive, No focal deficits noted Abdomen: Soft, Non-Tender Skin: No rashes noted on visualized skin Musculoskeletal: No Chest Wall Tenderness Extremities: Other (2+ BLE edema ) Results 04/03/17 06:35 04/03/17 06:35 Lab Results 04/03/17 04/03/17 04/03/17 06:35 06:35 06:35 WBC 20.2 H D Hgb 10.0 L Hct 31.0 L Plt Count 211 INR 2.5 D Sodium 125 L Potassium 4.6 Chloride 95 L Carbon Dioxide 22 L BUN 59 H Creatinine 1.63 H Glucose 215 H Calcium 8.4 L Total Bilirubin 0.4 AST 31 ALT 50 Alkaline Phosphatase 56 B-Natriuretic Peptide 04/03/17 06:35 WBC Hgb Hct Plt Count INR Sodium Potassium Chloride Carbon Dioxide BUN Creatinine Glucose Calcium Total Bilirubin AST ALT Alkaline Phosphatase B-Natriuretic Peptide 546 H Impressions Chest X-Ray 04/03/17 08:55 IMPRESSION: Much increased severity of bilateral airspace disease due to increasing edema. Portions of the disease appears consolidative, superimposed pneumonia cannot be excluded. No significant change of bilateral pleural effusions D/ / Case Byrne MD / Case Byrne MD Interpreting Provider: Case Byrne MD Active Medications Acetaminophen (Tylenol) 650 mg PO Q6HR PRN PRN Reason: Mild pain and fever Stop: 10/01/17 10:34 Last Admin: 04/01/17 11:08 Dose: 650 mg Hydrocodone Bitart/Acetaminophen ([place] 5-325 Mg) 1 tab PO Q4HR PRN PRN Reason: Moderate Pain (4-6) Stop: 09/28/17 21:14 Last Admin: 04/02/17 23:12 Dose: 1 tab Albuterol/Ipratropium (Duoneb) 3 ml IH [id number] PRN PRN Reason: Shortness Of Breath/Wheezing Stop: 09/28/17 21:32 Last Admin: 04/02/17 23:44 Dose: 3 ml Albuterol/Ipratropium (Duoneb) 3 ml IH [id number] [facility] Stop: 09/28/17 22:01 Last Admin: 04/03/17 10:39 Dose: 3 ml Apixaban (Eliquis) 2.5 mg PO BID [facility] Stop: 10/02/17 21:01 Last Admin: 04/03/17 09:13 Dose: 2.5 mg Ascorbic Acid (Vitamin C) 500 mg PO DAILY [facility] Stop: 09/29/17 09:01 Last Admin: 04/03/17 09:13 Dose: 500 mg Aspirin (Aspirin Ec) 81 mg PO DAILY [facility] Stop: 10/01/17 09:01 Last Admin: 04/03/17 09:13 Dose: 81 mg Calcium Carbonate (Tums) 500 mg PO DAILY [facility] Stop: 09/29/17 09:01 Last Admin: 04/03/17 09:13 Dose: 500 mg Dextrose/Water (Dextrose 50% (Syg)) 25 ml IVP AD PRN PRN Reason: Hypoglycemia Stop: 09/28/17 21:17 Diltiazem HCl (Cardizem Cd) 120 mg PO DAILY [facility] Stop: 10/02/17 09:16 Last Admin: 04/03/17 09:13 Dose: 120 mg Famotidine (Pepcid) 20 mg PO DAILY [facility] Stop: 09/29/17 09:01 Last Admin: 04/03/17 09:13 Dose: 20 mg Glucagon (Glucagen) 1 mg IM ONCE PRN PRN Reason: Hypoglycemia Stop: 09/28/17 21:17 Glucose (Gluctose) 15 gm PO ONCE PRN PRN Reason: Hypoglycemia Stop: 09/28/17 21:17 Glucose (Gluctose) 30 gm PO ONCE PRN PRN Reason: Hypoglycemia Stop: 09/28/17 21:17 Hydromorphone HCl (Dilaudid) 0.5 mg IVP Q4HR PRN PRN Reason: Breakthrough Pain Stop: 10/02/17 21:07 Last Admin: 04/02/17 23:55 Dose: 0.5 mg Dextrose (Dextrose 5%) 1,000 mls @ 100 mls/hr IVC .Q10H PRN PRN Reason: HYPOGLYCEMIA Stop: 09/28/17 21:17 Furosemide 240 mg/ Dextrose 120 mls @ 5 mls/hr IVC .Q24H [facility] PRN Reason: 10 MG/HR Stop: 10/03/17 00:31 Last Admin: 04/03/17 01:03 Dose: 10 mg/hr, 5 mls/hr Insulin Detemir (Levemir) 10 unit SQ HS [facility] Stop: 10/02/17 21:01 Last Admin: 04/02/17 23:29 Dose: 10 unit Insulin Human Lispro (Humalog) 0 units SQ TIDAC [facility] PRN Reason: Protocol Stop: 09/29/17 07:31 Last Admin: 04/03/17 09:14 Dose: 6 units Insulin Human Lispro (Humalog) 0 units SQ HS [facility] PRN Reason: Protocol Stop: 09/28/17 21:34 Last Admin: 04/02/17 23:29 Dose: 3 units Magnesium Hydroxide (Milk Of Magnesia Conc) 10 ml PO DAILY PRN PRN Reason: Constipation Stop: 10/02/17 19:29 Last Admin: 04/02/17 20:36 Dose: 10 ml Magnesium Oxide (Mag-Ox) 200 mg PO DAILY [facility] Stop: 09/29/17 09:01 Last Admin: 04/03/17 09:13 Dose: 200 mg Metoprolol Succinate (Toprol Xl) 100 mg PO DAILY [facility] Stop: 09/29/17 09:01 Last Admin: 04/03/17 09:13 Dose: 100 mg Morphine Sulfate (Morphine Sulfate) 1 mg IVP Q3H PRN PRN Reason: Moderate Pain Stop: 10/01/17 04:23 Last Admin: 04/01/17 17:25 Dose: 1 mg Multivitamins/Calcium (Thera M Plus) 1 tab PO DAILY [facility] Stop: 09/29/17 09:01 Last Admin: 04/03/17 09:13 Dose: 1 tab Naloxone HCl (Narcan) 0.4 mg IVP Q2MIN PRN PRN Reason: Opioid Reversal Stop: 09/28/17 21:14 Nitroglycerin (Nitroglycerin) 0.4 mg SL Q5MIN PRN PRN Reason: Chest Pain Stop: 09/29/17 00:31 Last Admin: 03/30/17 00:29 Dose: 0.4 mg Nitroglycerin (Nitroglycerin) 1 inch TP Q6HNTG [facility] Stop: 10/03/17 00:31 Last Admin: 04/03/17 09:13 Dose: 1 inch Ondansetron HCl (Zofran) 4 mg IVP Q6HR PRN PRN Reason: Nausea And Vomiting Stop: 09/28/17 21:14 Last Admin: 03/31/17 20:45 Dose: 4 mg Throat Lozenges (Cepacol Sore Throat Lozenge) 1 each MM Q2H PRN PRN Reason: Sore Throat Stop: 09/29/17 20:32 Last Admin: 03/30/17 22:34 Dose: 1 each Trazodone HCl (Trazodone) 25 mg PO HS [facility] Stop: 09/30/17 21:01 Last Admin: 04/02/17 20:36 Dose: 25 mg - Imaging and Cardiology Echo: report reviewed - EKG Interpretation EKG results cardiology: other (12 hr tele AVG HR 57, SR) Consult Discharge Plan - Plan Referrals: Manjula Yee [employer] [Primary Care Provider] - 04/06/17 10:00 am
[2017-04-03] MEDS: *HR* HYDROcodone/Acet 5/325 mg TABLET PO PRN (12:17)
[2017-04-03] MEDS ORDERED: *HR* Morphine 2 MG/ML SYRINGE IVP ONE (14:55)
[2017-04-03] MEDS ORDERED: Haloperidol Lactate 5 MG/ML VIAL IVP ONE (14:57)
[2017-04-03] MEDS ORDERED: *HR* LORazepam 2 MG/ML VIAL IVP PRN (14:59)
[2017-04-03] MEDS ORDERED: Haloperidol Lactate 5 MG/ML VIAL IVP PRN (15:00)
[2017-04-03] MEDS: *HR* LORazepam 2 MG/ML VIAL IVP PRN ×2 (15:23→18:05)
--- NOTE | 2017-04-03 15:23 | Palliative - Consult Note ---
Date of Encounter: 04/03/17 Time of Encounter: 14:00 - Assessment and Plan (1) Atrial fibrillation with RVR Current Visit: Yes Status: Acute Assessment and plan: Stable currently will maintain current cardiac medications. (2) Cardiac murmur Current Visit: Yes Status: Acute Assessment and plan: No further workup will be entertained. Patient does not wish to have a left heart catheter and would be a very poor candidate for any surgery anyway. (3) Diastolic CHF Current Visit: Yes Status: Acute Assessment and plan: She has declined any further workup of this. Patient be transitioned out comfort care only. The hospice tomorrow if she survives the night. Qualifiers: Congestive heart failure chronicity: acute Qualified Code(s): I50.31 - Acute diastolic (congestive) heart failure (4) Acute respiratory failure Current Visit: Yes Status: Acute Assessment and plan: BiPAP being withdrawn at this time in favor of oxygen mask. Patient given medications to ease the transition. If patient survives patient be transitioned to hospice tomorrow. Qualifiers: Respiratory failure complication: hypoxia Qualified Code(s): J96.01 - Acute respiratory failure with hypoxia (5) Pulmonary edema Current Visit: Yes Status: Acute Assessment and plan: Home or edema's primary cause of the patient's shortness of breath. Full etiology of this is still been undetermined, however patient will have BiPAP withdrawn today oxygen. And medications are frank Qualifiers: Chronicity: acute Qualified Code(s): J81.0 - Acute pulmonary edema (6) Goals of care, counseling/discussion Current Visit: Yes Status: Acute Assessment and plan: patient has request BiPAP be stopped in favor of oxygen via [facility] Medications will be available to the patient at time of withdrawal of BiPAP medications have been written for to keep her comfortable. In her current room for tonight transferred to tomorrow will consider drip if needed, however at this time medication will be given an episodic ways that she may be able to interact with her family. Palliative-CN HPI - Data of Consult Patient: new to practice Requesting Physician: José Viera DO Primary Care Provider: Manjula Yee CNP - Consult Narrative Palliative Care/Comfort Measures: Palliative care Reason for consult: bipap withdrawl History of present illness: Ms. Ayala is a 89 year old female Who is currently BiPAP dependent. Breast a desire not to be intubated, and not to continue the BiPAP. Patient is already experiencing breakdown of the skin around her nose from the BiPAP mask. The patient has refused any further workup from cardiology with regards to her heart. Have active pulmonary edema which he is not completely determined at this time however the treatment team believes this to be primarily cardiac. Ready noted patient has been seen by cardiology, and she has declined any further cardiac intervention. At this point in time the patient and the family are requesting stopping the BiPAP, and want to know what their options are with regards to that. At this time the patient is having no chest pain, she does have shortness of breath that she takes off the BiPAP mask. The case began with pressure-type chest discomfort which radiated in across her chest associated with shortness of breath 7-8/10 pressure noted with associated shortness of breath rest seemed to make it better meds made it better. She had episodes like this before with exertion. During the hospitalization patient has had a cardiogram which shows a preserved systolic ejection fraction indeterminant diastolic dysfunction as the possibility of mitral valve dysfunction. However the exam was not adequate to explain the current symptoms the patient's having. During this time the patient also had acute kidney injury secondary to use of diuretics. However without the diuretics the patient was horribly short of breath and D satting. As already noted the patient had wished to not be intubated consequently all efforts were utilized by the treatment team to keep the patient from being ventilated including BiPAP. At this point in time the patient wishes to stop the BiPAP. CC: José Viera, DO sob Past Med Surg Social Fam HX - Past Medical History Medical history: cancer, diabetes, GERD, hypertension Psychiatric history: no psych history - Past Surgical History Surgical History: breast surgery, cancer surgery - Social History Smoking Status: Never smoker Smokeless Tobacco Status: No Alcohol use: none Drug use: none Medications and Allergies Amlodipine Besylate 10 mg PO DAILY 07/30/16 [History] Ascorbate Calcium [Vitamin C] 500 mg PO DAILY 07/30/16 [History] Aspirin [Ecotrin] 325 mg PO DAILY 07/30/16 [History] Calcium Carbonate [Calcium] 500 mg PO DAILY 07/30/16 [History] Famotidine [Pepcid] 40 mg PO DAILY 07/30/16 [History] Garlic 500 mg PO DAILY 07/30/16 [History] Magnesium Oxide [Magnesium] 250 mg PO DAILY 07/30/16 [History] Metoprolol XL (24 HR) Succ [Toprol XL] 100 mg PO DAILY 07/30/16 [History] Multivits Min/Iron/FA/Herb#186 [Hair, Skin & Nails Caplet] 1 tab PO DAILY [History] [place]-3/Dha/Epa/Fish Oil [Fish Oil 500 mg Softgel] 500 mg PO DAILY 07/30/16 [ History] Triamterene/HCTZ 37.5/25mg [Dyazide] 1 each PO DAILY 07/30/16 [History] Zinc Acetate [Galzin] 50 mg PO DAILY 07/30/16 [History] metFORMIN [Glucophage] 500 mg PO BIDWM 07/30/16 [History] Potassium Gluconate [Potassium] 500 mg PO HS 03/29/17 [History] 3 Allergy/AdvReac Type Severity Reaction Status Date / Time doxazosin [From Cardura] Allergy Swelling Verified 07/30/16 09:58 of Lip/Tongue/Throat lisinopril Allergy Swelling Verified 07/30/16 09:58 of Lip/Tongue/Throat simvastatin [From Zocor] Allergy Swelling Verified 07/30/16 09:58 of Lip/Tongue/Throat ROS unobtainable: due to mental status Palliative Care-Exam - Constitutional Vitals: Temp Pulse Resp BP Pulse Ox 97.6 F 95 14 125/59 90 04/03/17 11:03 04/03/17 11:03 04/03/17 11:03 04/03/17 11:03 04/03/17 11:03 General appearance: Present: no acute distress - Head Head Exam: Present: atraumatic, normal inspection - Eye Eye exam: Present: EOMI, normal appearance - Respiratory Respiratory exam: Present: decreased breath sounds, rales, rhonchi - Cardiovascular Cardiovascular exam: Present: RRR - GI/Abdominal Exam GI/Abdominal exam: Present: soft. Absent: tenderness - Catheter Type: Urethral (Mai) - Extremities Exam Extremities exam: Absent: tenderness - Neurological Exam Neurological exam: Present: alert, oriented X3 - Psychiatric Psychiatric exam: Absent: agitated, anxious - Skin Skin exam: Present: dry, warm Internal Medicine - CN: Reslt - Labs CBC & Chem 7: 04/03/17 06:35 04/03/17 06:35 Labs: Short CBC 04/03/17 Range/Units 06:35 WBC 20.2 H D (4.3-11.1) K/mcL Hgb 10.0 L (11.5-15.4) g/dL Hct 31.0 L (35.3-44.9) % Plt Count 211 (140-400) K/mcL Neutrophils # 17.4 H (1.6-8.9) K/mcL BMP 04/03/17 06:35 Sodium 125 L Potassium 4.6 Chloride 95 L Carbon Dioxide 22 L BUN 59 H Creatinine 1.63 H Glucose 215 H Calcium 8.4 L Liver Function 04/03/17 Range/Units 06:35 Total Bilirubin 0.4 (0.3-1.0) mg/dL AST 31 (13-39) Units/L ALT 50 (7-52) Units/L Alkaline Phosphatase 56 (34-104) Units/L Albumin 3.4 L (3.5-5.7) g/dL Urine 04/02/17 Range/Units 19:32 Urine Color Red A (Yellow) Urine Clarity Turbid A (Clear) Urine pH 6.0 (5.0-8.0) pH Units Ur Specific [place] 1.025 (1.010-1.025) Urine Protein 100 H (Neg-Trace) mg/dL Urine Glucose (UA) Normal (Normal) mg/dL - ABG Interpretation ABG results: ABG ABG pH 7.37 pH Units (7.32-7.45) 04/01/17 04:07 ABG pCO2 40 mmHg (35-45) 04/01/17 04:07 ABG pO2 85 mmHg (85-104) 04/01/17 04:07 ABG O2 Saturation 96 % (95-98) 04/01/17 04:07 PT/INR, D-dimer PT 27.2 Seconds (9.4-12.1) H D 04/03/17 06:35 - Impressions Impressions Chest X-Ray 04/03/17 08:55 IMPRESSION: Much increased severity of bilateral airspace disease due to increasing edema. Portions of the disease appears consolidative, superimposed pneumonia cannot be excluded. No significant change of bilateral pleural effusions D/ / Case Byrne MD / Case Byrne MD Interpreting Provider: Case Byrne MD Consult Discharge Plan - Plan Referrals: Manjula Yee CNP [Primary Care Provider] - 04/06/17 10:00 am Palliative Quality Palliative Quality: Screen for Code Status: Yes, Screen for Goals of Care: Yes, Screen for Pain: Yes, If Pain Regimen Started, Initiate Bowel Regimen: Yes, Screen for Nausea/Vomitting: Yes Code Status: 03/29/17 21:13 Resuscitation Status: Active [RES] Routine Comment: Resuscitation Status: [id number] Resuscitation Status: Active [RES] Routine Comment: Resuscitation Status: DNR-Comfort Care
--- NOTE | 2017-04-03 16:51 | Internal Med Progress Note ---
<AndrewChuck Roberts - Last Filed: 04/03/17 16:48> Date of Encounter: 04/03/17 Time of Encounter: 08:25 - Assessment and plan (1) Acute respiratory failure Current Visit: Yes Status: Acute Assessment and plan: Acute respiratory failure worsened over night. Mrs. Ayala demonstrated decompensation and respiratory status last evening. She was back into atrial fibrillation with rapid ventricular rate oxygen demand requiring BiPAP to maintain oxygen saturations greater than 88%. Repeat chest x-ray demonstrates progression of pulmonary edema with blunting of costophrenic angles bilaterally and increased pulmonary vascularization. ABG performed demonstrating a pH of 7.37, PCO2 40, PO2 85 and a bicarbonate 23 with oxygen saturations at 96% on BiPAP. 04/01: Evaluation this morning demonstrates this Lucy alert awake oriented interactive on BiPAP answering questions appropriately. She continues to have crackles in bilateral lung bases and was placed on nasal Oxygen demonstrates desaturation into the mid 80s. Clinically she appears labored respiratory effort. Decompensation of respiratory status secondary to rapid ventricular rate and worsening pulmonary edema 04/02: Respiratory status worsened overnight, continues to require BiPAP on 80% FiO2. Continue IV diuresis in the setting of pulmonary edema. Will consult pulmonology for further recommendations given not improvement in patient's respiratory status despite treatment of pulmonary edema and volume overload. 04/03: No improvement of respiratory status, repeat chest x-ray demonstrates diffuse pulmonary edema with bilateral pleural effusions. Worsening of overall condition clinically. - Continue Lasix drip. - Monitor volume status closely - Wean oxygen as tolerated - Consult placed to palliative care Qualifiers: Respiratory failure complication: hypoxia Qualified Code(s): J96.01 - Acute respiratory failure with hypoxia (2) Hypertension Current Visit: Yes Status: Chronic Assessment and plan: Hold amlodipine, blood pressure currently appropriate - Continue rate control medications Cardizem and Toprol. - Adjust blood pressure medications as blood pressure stabilizes. Qualifiers: Hypertension type: essential hypertension Qualified Code(s): I10 - Essential (primary) hypertension (3) Diabetes mellitus Current Visit: Yes Status: Chronic Assessment and plan: Patient is a known type II diabetic currently hyperglycemic. Last A1c was 6.5 in April, continue to require increase insulin during inpatient stay. Plan: - Low-dose inpatient sliding scale - Levemir 8 units at bedtime initial dose now - Before meals at bedtime glucose checks Qualifiers: Diabetes mellitus type: type 2 Diabetes mellitus complication status: with unspecified complications Diabetes mellitus nursing home insulin use: without nursing home use Qualified Code(s): E11.8 - Type 2 diabetes mellitus with unspecified complications (4) Atrial fibrillation with RVR Current Visit: Yes Status: Acute Assessment and plan: Likely secondary to increased systemic volume. Patient transitioned into normal sinus rhythm this morning, respiration status is not improved. Cardiology continues to follow -Continue Cardizem 120 mg daily and metoprolol 100 mg by mouth daily - Rate controlled at this time - Continue Eliquis (5) Cardiac murmur Current Visit: Yes Status: Acute Assessment and plan: Patient has finding of grade 2/6 systolic ejection murmur. Echocardiogram supportive findings. May benefit from it transesophageal echocardiogram at this time patient is too unstable. Further evaluation would be recommended to evaluate the mitral regurgitation. This may be contributing to the patient's pulmonary edema and may benefit from intervention if patient chooses to undergo therapy in the future. Echocardiogram: Impressions: LVEF 65%. Indeterminate diastolic function. Normal right ventricular structure and function. Probably moderate, eccentric mitral regurgitation that is not well visualized by color-flow imaging. Mild-moderate tricuspid regurgitation. Mild pulmonic regurgitation. Mild pulmonary hypertension. - Cardiology following appreciate recommendations (6) Diastolic CHF Current Visit: Yes Status: Acute Assessment and plan: Patient demonstrates pulmonary edema in setting of volume overload. Continue with IV diuresis, this is contributing to her acute respiratory failure. Echocardiogram Impressions: LVEF 65%. Indeterminate diastolic function. Normal right ventricular structure and function. Probably moderate, eccentric mitral regurgitation that is not well visualized by color-flow imaging. Mild-moderate tricuspid regurgitation. Mild pulmonic regurgitation. Mild pulmonary hypertension. - Plan as discussed above Qualifiers: Congestive heart failure chronicity: acute Qualified Code(s): I50.31 - Acute diastolic (congestive) heart failure (7) AMANDA (acute kidney injury) Current Visit: Yes Status: Acute Assessment and plan: Patient has worsening renal function the setting of diuresis with IV Lasix 40 mg twice a day. Creatinine elevated from 0.68 on 08/28/2017 and currently 1.65 on 04/03/2017. Acute kidney injury multifactorial with IV diuresis in the setting of diastolic heart failure and poor renal perfusion. Nephrology following, will likely start Tolvaptan today. Plan: - Continue to monitor renal function closely avoid nephrotoxic medications and renally dose antibiotics - Nephrology following appreciate recommendations. - We will hold off on IV fluids at this time in the setting of pulmonary edema and worsening respiratory status. (8) Hyponatremia Current Visit: Yes Status: Acute Assessment and plan: Sodium 125 down from 136. Secondary to diuresis. Nephrology following. Plan: - 1 g sodium chloride tablet by mouth twice a day - Discussed with nephrology (9) DVT prophylaxis Current Visit: Yes Status: Acute Assessment and plan: Patient on Eliquis - Subjective Interval history: Patient seen and evaluated patient bedside this morning. She is alert awake interactive requiring BiPAP to maintain oxygen saturations greater than 88%, respiratory status is mildly labored. She did not have a great evening and required BiPAP, she was placed on Lasix drip and provided nitro paste sitting due to shortness of breath. She agrees that she has difficulty breathing and had some confusion last evening when she was not wearing her BiPAP. She notices a big difference in her respiratory status after removing the BiPAP. She has an upbeat mood, she has family at bedside. - Constitutional Vitals: Temp Pulse Resp BP Pulse Ox 97.6 F 95 14 125/59 90 04/03/17 11:03 04/03/17 11:03 04/03/17 11:03 04/03/17 11:03 04/03/17 11:03 General appearance: Present: cooperative, A&O X 3 (hard of hearing), pleasant, no acute distress, answers questions appropriately Exam: General: Patient alert, awake, oriented 3, interactive, in mild respiratory distress on BiPAP. HEENT: Normocephalic, atraumatic, pupils equal reactive to light, nasal cavity patent and open septum median position, oral mucosa dry, neck supple trachea midline no palpable lymphadenopathy, no thyromegaly. Chest: Symmetric bilateral correlating with respiratory effort, effort nonlabored. Cardiac: Irregularly irregular heart rate and rhythm, no bruits appreciated bilateral carotids, Radial pulses 2+ bilateral, posterior tibial and dorsal pedal pulses 2+ bilateral. Respiratory: Diffuse rhonchi Abdomen: Soft, nontender, positive bowel sounds, no palpable masses appreciated on examination Extremities: Symmetric bilateral, bilateral lower extremities without erythema or edema patient moving all 4 extremities spontaneously. Neurologic: No focal deficits appreciated on examination. Face symmetric, muscle strength symmetric bilateral upper and lower extremities. Internal Medicine: Result - Labs CBC & Chem 7: 04/03/17 06:35 04/03/17 06:35 Labs: Short CBC 04/03/17 Range/Units 06:35 WBC 20.2 H D (4.3-11.1) K/mcL Hgb 10.0 L (11.5-15.4) g/dL Hct 31.0 L (35.3-44.9) % Plt Count 211 (140-400) K/mcL Neutrophils # 17.4 H (1.6-8.9) K/mcL BMP 04/03/17 06:35 Sodium 125 L Potassium 4.6 Chloride 95 L Carbon Dioxide 22 L BUN 59 H Creatinine 1.63 H Glucose 215 H Calcium 8.4 L Liver Function 04/03/17 Range/Units 06:35 Total Bilirubin 0.4 (0.3-1.0) mg/dL AST 31 (13-39) Units/L ALT 50 (7-52) Units/L Alkaline Phosphatase 56 (34-104) Units/L Albumin 3.4 L (3.5-5.7) g/dL Urine 04/02/17 Range/Units 19:32 Urine Color Red A (Yellow) Urine Clarity Turbid A (Clear) Urine pH 6.0 (5.0-8.0) pH Units Ur Specific Mumford 1.025 (1.010-1.025) Urine Protein 100 H (Neg-Trace) mg/dL Urine Glucose (UA) Normal (Normal) mg/dL - ABG Interpretation ABG results: ABG ABG pH 7.37 pH Units (7.32-7.45) 04/01/17 04:07 ABG pCO2 40 mmHg (35-45) 04/01/17 04:07 ABG pO2 85 mmHg (85-104) 04/01/17 04:07 ABG O2 Saturation 96 % (95-98) 04/01/17 04:07 PT/INR, D-dimer PT 27.2 Seconds (9.4-12.1) H D 04/03/17 06:35 - Impressions Impressions Chest X-Ray 04/03/17 08:55 IMPRESSION: Much increased severity of bilateral airspace disease due to increasing edema. Portions of the disease appears consolidative, superimposed pneumonia cannot be excluded. No significant change of bilateral pleural effusions D/ / Case Byrne MD / Case Byrne MD Interpreting Provider: Case Byrne MD Consult Discharge Plan - Plan Referrals: Manjula Yee CNP [Primary Care Provider] - 04/06/17 10:00 am <José Viera Wanda - Last Filed: 04/03/17 18:47> Date of Encounter: 04/03/17 - Assessment and plan (1) Acute respiratory failure Current Visit: Yes Status: Acute Qualifiers: Respiratory failure complication: hypoxia Qualified Code(s): J96.01 - Acute respiratory failure with hypoxia (2) Pulmonary edema Current Visit: Yes Status: Acute Qualifiers: Chronicity: acute Qualified Code(s): J81.0 - Acute pulmonary edema (3) Diastolic CHF Current Visit: Yes Status: Acute Qualifiers: Congestive heart failure chronicity: acute Qualified Code(s): I50.31 - Acute diastolic (congestive) heart failure (4) Diabetes mellitus Current Visit: Yes Status: Chronic Qualifiers: Diabetes mellitus type: type 2 Diabetes mellitus complication status: with unspecified complications 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 home use Qualified Code(s): E11.8 - Type 2 diabetes mellitus with unspecified complications (5) Atrial fibrillation Current Visit: Yes Status: Chronic Qualifiers: Atrial fibrillation type: chronic Qualified Code(s): I48.2 - Chronic atrial fibrillation (6) Hypertension Current Visit: Yes Status: Chronic Qualifiers: Hypertension type: essential hypertension Qualified Code(s): I10 - Essential (primary) hypertension (7) AMANDA (acute kidney injury) Current Visit: Yes Status: Acute - Constitutional Vitals: Temp Pulse Resp BP Pulse Ox 97.6 F 95 14 125/59 90 04/03/17 11:03 04/03/17 11:03 04/03/17 11:03 04/03/17 11:03 04/03/17 11:03 Internal Medicine: Result - Labs CBC & Chem 7: 04/03/17 06:35 04/03/17 06:35 Labs: Short CBC 04/03/17 Range/Units 06:35 WBC 20.2 H D (4.3-11.1) K/mcL Hgb 10.0 L (11.5-15.4) g/dL Hct 31.0 L (35.3-44.9) % Plt Count 211 (140-400) K/mcL Neutrophils # 17.4 H (1.6-8.9) K/mcL BMP 04/03/17 06:35 Sodium 125 L Potassium 4.6 Chloride 95 L Carbon Dioxide 22 L BUN 59 H Creatinine 1.63 H Glucose 215 H Calcium 8.4 L Liver Function 04/03/17 Range/Units 06:35 Total Bilirubin 0.4 (0.3-1.0) mg/dL AST 31 (13-39) Units/L ALT 50 (7-52) Units/L Alkaline Phosphatase 56 (34-104) Units/L Albumin 3.4 L (3.5-5.7) g/dL Urine 04/02/17 Range/Units 19:32 Urine Color Red A (Yellow) Urine Clarity Turbid A (Clear) Urine pH 6.0 (5.0-8.0) pH Units Ur Specific Mumford 1.025 (1.010-1.025) Urine Protein 100 H (Neg-Trace) mg/dL Urine Glucose (UA) Normal (Normal) mg/dL - ABG Interpretation ABG results: ABG ABG pH 7.37 pH Units (7.32-7.45) 04/01/17 04:07 ABG pCO2 40 mmHg (35-45) 04/01/17 04:07 ABG pO2 85 mmHg (85-104) 04/01/17 04:07 ABG O2 Saturation 96 % (95-98) 04/01/17 04:07 PT/INR, D-dimer PT 27.2 Seconds (9.4-12.1) H D 04/03/17 06:35 - Impressions Impressions Chest X-Ray 04/03/17 08:55 IMPRESSION: Much increased severity of bilateral airspace disease due to increasing edema. Portions of the disease appears consolidative, superimposed pneumonia cannot be excluded. No significant change of bilateral pleural effusions D/ / Case Byrne MD / Case Byrne MD Interpreting Provider: Case Byrne MD - Attending Attestation I examined this patient and my medical decision-making was reviewed with the Resident Physician on 04/03/17. I agree with the documented findings, disposition and treatment plan as described except to the extent set forth below. Ms Ayala is currently admitted for acute resp failure and CHF. She remains high risk due to potential for worsening clinical status. Ms Ayala has elected to be comfort care. She would like to have bipap removed and be comfortable. Family is in agreement. Exam alert. Comfortable at this time Heart reg Diffuse crackles I/P 1. Resp failure 2. CHF Comfort measures. Bipap removed.
[2017-04-03] MEDS: *HR* Morphine 2 MG/ML SYRINGE IVP PRN ×2 (17:46→18:02)
[2017-04-03 19:43] VITALS: BP 138/59
--- NOTE | 2017-04-04 07:29 | Event Note ---
Date of Encounter: 04/04/17 Time of Encounter: 07:28 [facility] Chart reviewed. I see that she is now pursuing comfort care. I will sign-off, but please feel free to contact me or re-consult as needed. Thank you
--- NOTE | 2017-04-08 19:22 | Death Note ---
Discharge Sum: Summary - Date and Time Date of admission: 03/29/17 23:28 Date of : 04/04/17 Time of : 02:55 - Summary Details: Ms Ayala had been admitted with acute respiratory distress. She was found to have a murmur and had echo showing moderate MR. On 04/02 she had significant decline in her respiratory status. She was requiring bipap and was unable to be removed from it. She appeared to be in pulmonary edema but continued to have respiratory issues despite diuresis. She was seen by palliative care and she elected to be removed from bipap and made comfortable. She peacefully with family at bedside. - Additional Data Confirmation of as documented by pronouncing clinician: no pulse, no respirations Family: at bedside Attending/PCP notified?: Yes Attending physician: José Viera, DO Was code activated?: No Autopsy requested?: No letter of credit document examiner notified?: No Advance directives: Yes Hospice patient?: No Discharge Sum: Diag - PCOD Probable Cause of : Hypoxia Discharge Sum: Prov - Provider Primary care physician: Manjula Yee CNP Admitting clinician: Melanie Lozano Attending physician on admission: Melanie Lozano Consults: 03/29/17 22:33 Consult to Cardiology [CONS] Routine Comment: Consulting Provider: Holly Reilly Reason for Consult: NSTEMI Call Completed: No 03/31/17 11:54 Consult to Physical Therapy [CONS] Routine Comment: Evaluate, develop and implement POC Reason for Consult: Elderly 89 y/o female from home alone. 03/31/17 11:55 Consult to Occupational Therapy [CONS] Routine Comment: Evaluate, develop and implement POC Reason for Consult: Elderly 89 y/o female from home alone. 04/01/17 10:28 Consult to Cardiology [CONS] Routine Comment: Per primary team, reconsult PAF, CHF Consulting Provider: [facility] Reason for Consult: PAF, CHF Call Completed: Yes 04/02/17 11:18 Consult to Nephrology [CONS] Routine Consulting Provider: [facility] Reason for Consult: AMANDA, hyponatremia Time Notified: 11:19 Call Completed: Yes 04/02/17 11:38 Consult to Pulmonology [CONS] Routine Consulting Provider: [facility] Reason for Consult: worsening respiratory service Call Completed: Yes 04/03/17 14:31 Consult to Palliative Care [CONS] Stat Comment: Consulting Provider: Palliative Care [facility] Reason for Consult: likely hospice care Call Completed: Yes Pronouncing clinician: Sylvia Paul
== END 2017-04-04 05:30 | disposition expired | DRG 291 ==
LOC: 2NENU → SUATTDRO 23:28
PROVIDERS: ADMIT Internal Medicine; ATTEND Internal Medicine